=== PATIENT | female | born 1990 | race Caucasian/White ===

== ENCOUNTER 2020-09-26 12:02 | Emergency (ER) | payer MEDICAID, SELFPAY ==
[2020-09-26 12:18] VITALS: BP 169/106; PULSE 104; RESP 18; TEMP 36.8; O2SAT 97; BMI 39.6
--- NOTE | 2020-09-26 12:43 | HMH.EDUTC ---
[facility] [place] Disposition Clinical Impression: URI (upper respiratory infection) Qualifiers: URI type: unspecified URI Qualified Code(s): J06.9 - Acute upper respiratory infection, unspecified Disposition: Home, Self-Care Condition on Discharge: Good Instructions: Sore Throat, Sinusitis, DI for Sinusitis, Preventing the Spread of Coronavirus Discharge Instructions Additional Instructions: *Monitor Temp, Over the counter Motrin or Tylenol as directed/as needed Tylenol every 4 hours and Motrin every 6 hours (as long as your family doctor has told you that you can take it) for fever or pain. and straight to ER if unable to lower temp less than 101.0 after medication given *Warm salt water gargles may help to soothe the throat *Throat Lozenges *Warm fluids like tea with honey may help to soothe the throat *Sleep elevated *Humidifier/Vaporizer *Flonase 2 sprays in each nostril daily but be aware that it may take 2-3 days before you notice improvement Follow up IMMEDIATELY for new or worsening symptoms or no Noticeable improvement over the next 48-72 hours. 911 for difficulty breathing or swallowing You was tested for today for COVID19 your test result should be back later this evening, you may call back later this evening to see if your test results are back and the result You was given a handout with instructions for Self Quarantine and Self isolation for while you wait on test results and what to do if they are positive Prescriptions: Fluticasone Propionate [Flonase 50mcg nasal spray 16gm] 1 spr NS DAILY #1 bottle Transmission Status: Pending to [id number] methylPREDNISolone [Medrol 4mg tab] 4 mg PO DIRECTED #21 tab Transmission Status: Pending to [id number] Azithromycin [Z-Don 250mg Tab] 250 mg PO DIRECTED #6 tab Transmission Status: Pending to [facility] Referrals: PCP,No [Primary Care Provider] - As needed Forms: Work/School Release Time of Disposition: 12:46 Medical Decision Making - Chao Inquiry Pt receiving controlled substance: No Chao was queried for this patient: No Vital Signs: 09/26/20 12:18 Temperature 98.3 F Temperature Source Oral Pulse Rate [Radial] 104 H Respiratory Rate 18 Blood Pressure [Right Arm] 169/106 H Blood Pressure Mean [Right Arm] 127 Blood Pressure Source [Right Arm] Automatic Cuff Blood Pressure Position [Right Arm] Sitting 02 Sat by Pulse Oximetry 97 Oxygen Delivery Method Room Air Orders (Tests/Meds): ORDERS Category Date Time Status Covid-19 Nasal PCR ([facility]) Routine Lab 09/26/20 12:09 Received [facility] [place] HPI - General Stated complaint: covid test Time Seen by Provider: 09/26/20 12:44 Mode of Arrival: Ambulatory Source of Information: Patient Limitations: No Limitations Description of Symptoms (Recalled from Triage Doc. by RN): COVID test, fever, cough, sore throat HEENT Symptoms (Recalled from RN notes): Yes Resp Symptoms (Recalled from RN notes): No Skin Symptoms (Recalled from RN notes): No MS Symptoms (Recalled from RN notes): No Functional Status (Recalled from RN notes): wnl - History of Present Illness Provider Complaint: Patient states that she has been having sinus pain and pressure along with sore throat and cough for over a week States that she thinks she has a sinus infection but she works at [employer] and they wanted her to come in and get checked for COVID - Related Data Previous Rx's Medication Instructions Recorded Azithromycin [Z-Don 250mg Tab] 250 mg PO DIRECTED #6 tab 09/26/20 Fluticasone Propionate [Flonase 1 spr NS DAILY #1 bottle 09/26/20 50mcg nasal spray 16gm] methylPREDNISolone [Medrol 4mg 4 mg PO DIRECTED #21 tab 09/26/20 tab] Allergies Allergy/AdvReac Type Severity Reaction Status Date / Time No Known Allergies Allergy Verified 09/26/20 12:20 - Worker's Comp Is this a Worker's Comp case?: No [facility] History - Hepatitis A Screen Drug use history?: No High risk se
[2020-09-26 12:50] VITALS: BP 169/106; PULSE 104; RESP 18; TEMP 36.8; O2SAT 97
== END 2020-09-26 12:52 | disposition home or self-care (01) ==
PROVIDERS: Emergency Provider Nurse Practitioner
DX: J06.9 Acute upper respiratory infection, unspecified (principal); Z20.828 Contact with and (suspected) exposure to other viral communicable diseases
CPT/HCPCS: 99201; U0003

== ENCOUNTER 2020-12-12 13:55 | Emergency (ER) | payer MEDICAID, SELFPAY ==
[2020-12-12 14:10] VITALS: BP 166/103; PULSE 104; RESP 14; TEMP 36.2; O2SAT 97; BMI 43.0
--- NOTE | 2020-12-12 14:25 | HMH.EDUTC ---
[facility] [place] Clinical Impression: Exposure to COVID-19 virus Disposition: Home, Self-Care Condition on Discharge: Good Instructions: Preventing the Spread of Coronavirus Discharge Instructions Additional Instructions: Drink plenty of fluids. Take tylenol for pain or fever. Return if you begin to have difficulty breathing. Follow up with your regular doctor. GO TO THE ER FOR ANY WORSENING SYMPTOMS Referrals: PCP,No [Primary Care Provider] - Time of Disposition: 14:31 Medical Decision Making - Medical Records Medical records reviewed: No: I reviewed the patient's medical records. - Chao Inquiry Pt receiving controlled substance: No Vital Signs: 12/12/20 14:10 12/12/20 14:35 Temperature 97.1 F L 97.1 F L Temperature Source Oral Pulse Rate 104 H Pulse Rate [Right Brachial] 104 H Respiratory Rate 14 14 Blood Pressure 166/103 H Blood Pressure [Right Arm] 166/103 H Blood Pressure Mean [Right Arm] 124 Blood Pressure Source [Right Arm] Automatic Cuff Blood Pressure Position [Right Arm] Sitting 02 Sat by Pulse Oximetry 97 Oxygen Delivery Method Room Air [facility] [place] HPI - General Stated complaint: covid exposure Time Seen by Provider: 12/12/20 14:25 - History of Present Illness Provider Complaint: She was exposed to covid. She works at [employer] and needs a covid test to be allowed to return. She denies any symptoms so far. She states that the exposure occured apporx 4 days ago. - Related Data Allergies Allergy/AdvReac Type Severity Reaction Status Date / Time No Known Allergies Allergy Verified 09/26/20 12:20 [facility] History - Hepatitis A Screen Attestation statement:: This patient has been screened for Hepatitis A risk factors. I have reviewed the patient's past medical history: Yes - Social History Alcohol Intake: never Occupational Status: employed ROS Obtained: Yes All systems reviewed & no additional complaints - Constitutional Constitutional: Reports system reviewed and no additional complaints, except as docu - Eyes Eyes: Reports system reviewed and no additional complaints, except as docu - ENT Ears, Nose, Mouth, and Throat: Reports system reviewed and no additional complaints, except as docu - Cardiovascular Cardiovascular: Reports system reviewed and no additional complaints, except as docu - Respiratory Respiratory: Reports system reviewed and no additional complaints, except as docu - Gastrointestinal Gastrointestingal: Reports: system reviewed and no additional complaints, except as docu Physical Exam - General General appearance: alert, in no apparent distress - Head Head exam: atraumatic, normocephalic, normal inspection - Eye Eye exam: Present: normal appearance, PERRL, EOMI - ENT ENT exam: Present: normal exam, normal oropharynx, mucous membranes moist, TM's normal bilaterally, normal external ear exam - Neck Neck exam: Present: normal inspection, full ROM, trachea midline. Absent: meningismus, lymphadenopathy - Chest Chest inspection: Present: normal inspection, symmetric chest wall rise. Absent: tenderness - Respiratory Respiratory exam: Present: normal lung sounds bilaterally. Absent: respiratory distress - Cardiovascular Cardiovascular exam: Present: regular rate, normal rhythm. Absent: JVD - Abdominal Exam Abdominal exam: Present: soft, normal bowel sounds. Absent: distention, tenderness, guarding - Extremities Exam Extremities exam: Present: normal inspection, full ROM, normal capillary refill. Absent: calf tenderness - Back Exam Back exam: Present: normal inspection. Absent: tenderness - Neurological Exam Neurological exam: Present: alert, oriented X3 - Psychiatric Psychiatric exam: Present: normal affect, normal mood - Skin Skin exam: Present: warm, dry, intact, normal color - Lymphatic Lymphatic Findings: no adenopathy
[2020-12-12 14:35] VITALS: BP 166/103; PULSE 104; RESP 14; TEMP 36.2; O2SAT 97
== END 2020-12-12 14:38 | disposition home or self-care (01) ==
PROVIDERS: Emergency Provider Nurse Practitioner Family
DX: Z20.822 Contact with and (suspected) exposure to COVID-19 (principal)
CPT/HCPCS: 99202; G0463; U0003

== ENCOUNTER 2021-03-17 07:57 | Emergency (ER) | payer MEDICAID, SELFPAY ==
[2021-03-17] VITALS (9 sets, daily range): BP systolic 134–182; BP diastolic 99–114; PULSE 81–100; RESP 14–19; TEMP 36.6–36.7; O2SAT 92–99; BMI 48.8
--- NOTE | 2021-03-17 07:52 | ECG_ITS ---
APPROVED REPORT Exam: Resting ECG HR:97 bpm ECG Measurements Heart Rate 97 AXES AK 126 P 22 QRSd 84 QRS -66 QT 354 T 46 QTc 449 Conclusion Normal sinus rhythm Left axis deviation Pulmonary disease pattern Abnormal ECG Electronically signed by : Prince Denson, 03/17/2021 17:34:25
--- NOTE | 2021-03-17 08:07 | XR_ITS ---
PROCEDURE: XR CHEST PORTABLE CLINICAL HISTORY: CP Chest pain COMPARISON: No exams were available for comparison FINDINGS: The cardiomediastinal silhouette and pulmonary vascularity are within normal limits. Atelectatic change in the right infrahilar region. The remaining lungs are clear. No acute bony abnormalities. IMPRESSION: Atelectatic change right infrahilar area Dictated by: Stan Myers MD 03/17/2021 08:50 Stan Myers MD in [place] 03/17/2021 08:50
[2021-03-17 08:13] LABS: Basophils # 0.1 K/mm3 (0-0.2); Basophils % 1.4 % (0.1-2.0); Eosinophils # 0.2 K/mm3 (0.0-0.4); Eosinophils % 3.2 % (0.1-12.0); Hematocrit 46.5 % (37.0-47.0); Lymphocytes # 2.4 K/mm3 (0.7-4.5); Lymphocytes % 35.6 % (10-50); Mean Corpuscular HGB Conc 34.3 g/dL (31.8-35.4); Mean Corpuscular Hemoglobin 29.8 pg (27.0-31.2); Mean Corpuscular Volume 86.9 fl (81-99); Mean Platelet Volume 7.8 fl (7.4-10.4); Monocytes # 0.3 K/mm3 (0.1-1.0); Monocytes % 4.4 % (1.7-9.3); Neutrophils # 3.7 K/mm3 (1.8-7.8); Neutrophils % 55.4 % (37.0-80.0); Platelet Count 214 K/mm3 (142-424); Red Blood Count 5.35 M/mm3 (4.20-5.40); Red Cell Distribution Width 12.5 % (11.5-17.5); White Blood Count 6.6 K/mm3 (4.8-10.8)
--- NOTE | 2021-03-17 08:27 | HMH.EDGENADL ---
ED Disposition Clinical Impression: Elevated blood pressure reading Chest pain Qualifiers: Chest pain type: unspecified Qualified Code(s): R07.9 - Chest pain, unspecified Disposition: Home, Self-Care Condition on Discharge: Good Additional Instructions: Please followup as scheduled on Monday for recheck of blood pressure. If elevated at that time, antihypertensives may be indicated. Try tylenol/ibuprofen for pain at home. Always take ibuprofen with food. Return immediately if recurrent chest pain, shortness of breath, headache, lightheadedness, vision changes, weakness, or other new concerning symptoms. Referrals: PCP,No [Primary Care Provider] - - Critical Care Critical Care Time: No Attestation: On 03/17/21, the high probability of a clinically significant, sudden or life threatening deterioration of the following system(s) required my full and direct attention, intervention and personal management. The time I documented below is in addition to time spent performing reported procedures but includes the following listed in this critical care notation. Medical Decision Making - Medical Records Medical records reviewed: Yes: I reviewed the patient's medical records. - Chao Inquiry Pt receiving controlled substance: No Vital Signs: 03/17/21 07:57 03/17/21 08:05 03/17/21 08:15 Temperature 98.1 F Temperature Source Oral Pulse Rate 100 H 92 H Pulse Rate [Right] 91 H Respiratory Rate 18 15 19 Blood Pressure 182/114 H 182/100 H Blood Pressure [Right Arm] 157/100 H Blood Pressure Mean [Right Arm] 119 Blood Pressure Source Automatic Cuff Blood Pressure Position Sitting 02 Sat by Pulse Oximetry 99 96 94 L Oxygen Delivery Method Room Air 03/17/21 08:45 Temperature Temperature Source Pulse Rate 89 Pulse Rate [Right] Respiratory Rate 15 Blood Pressure 168/107 H Blood Pressure [Right Arm] Blood Pressure Mean [Right Arm] Blood Pressure Source Blood Pressure Position 02 Sat by Pulse Oximetry 92 L Oxygen Delivery Method - Lab Data Lab Results 03/17/21 08:00: WBC 6.6, RBC 5.35, Hgb 16.0, Hct 46.5, MCV 86.9, MCH 29.8, MCHC 34.3, RDW 12.5, Plt Count 214, MPV 7.8, Neut % (Auto) 55.4, Lymph % (Auto) 35.6, [place] % (Auto) 4.4, Eos % (Auto) 3.2, Baso % (Auto) 1.4, Neut # (Auto) 3.7, Lymph # (Auto) 2.4, [place] # (Auto) 0.3, Eos # (Auto) 0.2, Baso # (Auto) 0.1 03/17/21 08:00: Troponin I < 0.01 03/17/21 08:00: Sodium 141, Potassium 3.9, Chloride 104, Carbon Dioxide 31 H, Anion Gap 9.9, BUN 11, Creatinine 0.70, Estimated Creat Clear 83, Estimated GFR 97, Est GFR ( Amer) 117, Glucose 141 H, Calcium 9.3 Result diagrams: 03/17/21 08:00 03/17/21 08:00 Orders (Tests/Meds): ORDERS Category Date Time Status Troponin I Q3H Lab 03/17/21 11:15 Ordered Troponin I Q3H Lab 03/17/21 14:15 Ordered - ECG Data Tracing #1 I reviewed this ECG and interpreted as documented below: EKG demonstrates sinus rhythm at a rate of 97 bpm; no acute ST elevation/depression or inverted T waves; QTC 449 ms; QRS 84 ms; CA 126 ms Medical Decision Narrative: Patient presents with chest pain. EKG obtained immediately upon arrival demonstrates no acute cardiac ischemia. Cardiac enzymes will be obtained as ACS is on the differential. Other differential diagnoses do include pneumothorax versus hypertensive emergency versus pneumonia versus anemia versus diffuse esophageal spasm versus costochondritis versus GERD. Patient hemodynamically stable and well-appearing on examination. She will be kept on cardiac monitors throughout entirety of emergency department stay. No murmurs appreciated on auscultation of heart. CXR negative for pneumothorax or other acute cardiopulmonary abnormality. No anemia noted. Electrolytes within normal limits. No signs of end organ dysfunction. Troponin also within normal limits. Patient's heart score is in the low risk category so second set of cardiac enzyme basil
[2021-03-17 08:30] LABS: Troponin I < 0.01 ng/ml (0.00-0.034)
--- NOTE | 2021-03-17 08:31 | PC.NURSE ---
Rad at bedside.
[2021-03-17 08:40] LABS: Anion Gap 9.9 mEq/L (5-15); Blood Urea Nitrogen 11 mg/dl (7-17); Calcium 9.3 mg/dl (8.4-10.2); Carbon Dioxide 31 mmol/L (22.0-30.0); Chloride 104 mmol/L (98-107); Creatinine Clearance Estimated 83 mL/min (50-200); Estimated Glomerular Filt Rate 97 ml/min (>60); GFR (African American) 117 ML/MIN (>60); Glucose 141 mg/dl (74-100); Potassium 3.9 mmoL/L (3.5-5.1); Sodium 141 mmol/L (136-145)
--- NOTE | 2021-03-17 09:14 | PC.NURSE ---
MD at bedside updating patient on results and plan of care.
[2021-03-17 10:47] LABS: Troponin I < 0.01 ng/ml (0.00-0.034)
== END 2021-03-17 11:04 | disposition home or self-care (01) ==
PROVIDERS: Emergency Provider Emergency Medicine
DX: R03.0 Elevated blood-pressure reading, without diagnosis of hypertension (principal); R07.9 Chest pain, unspecified; E66.9 Obesity, unspecified; Z68.42 Body mass index [BMI] 45.0-49.9, adult
CPT/HCPCS: 71045; 80048; 84484; 85025; 93005; 99282

== ENCOUNTER → 2021-09-29 11:50 | Outpatient (CLI) | payer MEDICAID, SELFPAY | PROVIDERS: PCP Family Medicine; Visit Provider Nurse Practitioner | DX: Z20.822 Contact with and (suspected) exposure to COVID-19 (principal); U07.1 COVID-19 | CPT/HCPCS: C9803; U0003; U0005 ==

== ENCOUNTER 2021-11-06 08:59 | Emergency (ER) | payer MEDICAID, SELFPAY ==
[2021-11-06 09:00] VITALS: BP 144/87; PULSE 81; RESP 18; TEMP 37; O2SAT 98; BMI 48.4
--- NOTE | 2021-11-06 09:45 | HMH.EDUTC ---
[facility] [place] Clinical Impression: COVID-19 virus test result unknown Disposition: Home, Self-Care Condition on Discharge: Good Instructions: Preventing the Spread of Coronavirus Discharge Instructions Additional Instructions: covid swab was sent to lab, call later today for results. self isolate until test results are known to be negative Referrals: Samy Temple MD [Primary Care Provider] - Time of Disposition: 09:47 Medical Decision Making - Chao Inquiry Pt receiving controlled substance: No Vital Signs: 11/06/21 09:00 Temperature 98.6 F Temperature Source Oral Pulse Rate [Left Brachial] 81 Respiratory Rate 18 Blood Pressure [Left Arm] 144/87 H Blood Pressure Mean [Left Arm] 106 Blood Pressure Source [Left Arm] Automatic Cuff Blood Pressure Position [Left Arm] Sitting 02 Sat by Pulse Oximetry 98 Oxygen Delivery Method Room Air Orders (Tests/Meds): ORDERS Category Date Time Status Covid-19 Nasal PCR ([facility]) Routine Lab 11/06/21 09:27 Ordered [facility] [place] - General Chief complaint: [facility] Stated complaint: vomiting, diarrhea Time Seen by Provider: 11/06/21 09:45 Mode of Arrival: Ambulatory Source of Information: Patient Limitations: No Limitations Description of Symptoms (Recalled from Triage Doc. by RN): PATIENT NEEDING COVID TEST. DENIES SYMPTOMS HEENT Symptoms (Recalled from RN notes): No Resp Symptoms (Recalled from RN notes): No Skin Symptoms (Recalled from RN notes): No MS Symptoms (Recalled from RN notes): No Functional Status (Recalled from RN notes): WNL - History of Present Illness Provider Complaint: 31 yr old female presents for covid test, denies symptoms - Related Data Previous Rx's Medication Instructions Recorded lisinopril 20 1 tab PO DAILY #90 tab 03/19/21 mg-hydrochlorothiazide 12.5 mg tablet benzonatate 200 mg capsule 200 mg PO TID PRN #30 cap 10/01/21 Allergies Allergy/AdvReac Type Severity Reaction Status Date / Time No Known Allergies Allergy Verified 03/19/21 14:25 - Worker's Comp Is this a Worker's Comp case?: No [facility] History - Hepatitis A Screen Drug use history?: No High risk sexual behaviors?: No History of sexually transmitted infection?: No Currently employed?: No Childcare worker?: No Do you have indoor plumbing?: Yes Do you have electricity?: Yes Attestation statement:: This patient has been screened for Hepatitis A risk factors. I have reviewed the patient's past medical history: Yes Other Surgeries: Yes: Tubal Ligation Amputation: No Fractures: No Comment: Ablasion - Social History Smoking Status: Never smoker Alcohol Intake: never Alcohol Intake Frequency:: other Substance Use Type: denies use Occupational Status: other Family Hx:: No significant family history ROS Obtained: Yes Systems reviewed as appropriate & no additional complaints - Constitutional Constitutional: Reports system reviewed and no additional complaints, except as docu, Denies fatigue - Eyes Eyes: Reports system reviewed and no additional complaints, except as docu, Denies blind spots - ENT Ears, Nose, Mouth, and Throat: Reports system reviewed and no additional complaints, except as docu, Reports otalgia - Cardiovascular Cardiovascular: Reports system reviewed and no additional complaints, except as docu, Denies leg pain with activity - Respiratory Respiratory: Reports system reviewed and no additional complaints, except as docu, Denies shortness of breath - Gastrointestinal Gastrointestingal: Reports: system reviewed and no additional complaints, except as docu. Denies: change in bowel habits - Genitourinary Female Genitourinary: Reports system reviewed and no additional complaints, except as docu - Musculoskeletal Musculoskeletal: Reports system reviewed and no additional complaints, except as docu, Denies joint pain - Integumentary/Breasts Skin/Breast: Reports system reviewed and no additional complaint
[2021-11-06 09:57] VITALS: BP 144/87; PULSE 81; RESP 18; TEMP 37; O2SAT 98
== END 2021-11-06 10:25 | disposition home or self-care (01) ==
PROVIDERS: Emergency Provider Nurse Practitioner Family; PCP Family Medicine
DX: R11.10 Vomiting, unspecified (principal); R19.7 Diarrhea, unspecified; Z20.822 Contact with and (suspected) exposure to COVID-19
CPT/HCPCS: 99202; C9803; G0463; U0003; U0005

== ENCOUNTER 2021-11-17 07:00 | Emergency (ER) | payer MEDICAID, SELFPAY ==
--- NOTE | 2021-11-17 06:58 | ECG_ITS ---
APPROVED REPORT Exam: Resting ECG HR:108 bpm ECG Measurements Heart Rate 108 AXES ND 138 P 53 QRSd 84 QRS 256 QT 338 T 39 QTc 452 Conclusion Sinus tachycardia Right superior axis deviation Abnormal ECG Electronically signed by : Prince Denson MD 11/17/2021 20:34:41
[2021-11-17 07:01] VITALS: BP 157/98; PULSE 101; RESP 20; TEMP 36.9; O2SAT 98; BMI 48.8
--- NOTE | 2021-11-17 07:14 | XR_ITS ---
PROCEDURE INFORMATION: Exam: XR Chest Exam date and time: 11/17/2021 7:14 AM Age: 31 years old Clinical indication: Cough; Additional info: Cough, chest pain TECHNIQUE: Imaging protocol: XR of the chest. Views: 2 views. COMPARISON: CR XR CHEST PORTABLE 03/17/2021 8:28 AM FINDINGS: Lungs: Hypoinflation, without acute airspace disease. Pleural spaces: No pleural effusion. Heart/Mediastinum: Normal configuration of the heart. Bones/joints: Unremarkable. IMPRESSION: No acute airspace disease.
[2021-11-17 07:17] LABS: Coronavirus 19, PCR Not Detected (NotDetected); Influenza A, PCR Not Detected (NotDetected); Influenza B, PCR Not Detected (NotDetected)
[2021-11-17 07:21] LABS: Chloride 104 mmol/L (98-107)
[2021-11-17 07:22] LABS: Basophils # 0.1 K/mm3 (0-0.2); Eosinophils # 0.2 K/mm3 (0.0-0.4); Eosinophils % 3.1 % (0.1-12.0); Hematocrit 46.3 % (37.0-47.0); Hemoglobin 16.1 g/dL (12.2-16.2); Lymphocytes % 28.4 % (10-50); Mean Corpuscular HGB Conc 34.9 g/dL (31.8-35.4); Mean Corpuscular Hemoglobin 31.1 pg (27.0-31.2); Mean Corpuscular Volume 89.1 fl (81-99); Mean Platelet Volume 7.4 fl (7.4-10.4); Monocytes # 0.3 K/mm3 (0.1-1.0); Monocytes % 4.8 % (1.7-9.3); Neutrophils # 4.3 K/mm3 (1.8-7.8); Neutrophils % 62.8 % (37.0-80.0); Platelet Count 226 K/mm3 (142-424); Potassium 4.1 mmoL/L (3.5-5.1); Red Cell Distribution Width 12.1 % (11.5-17.5); Sodium 141 mmol/L (136-145); White Blood Count 6.9 K/mm3 (4.8-10.8)
[2021-11-17 07:24] LABS: Alanine Aminotransferase 26 U/L (12-78); Aspartate Amino Transferase 31 U/L (14-36); Blood Urea Nitrogen 12 mg/dl (7-17); Creatinine Clearance Estimated 83 mL/min (50-200); Estimated Glomerular Filt Rate 97 ml/min (>60); GFR (African American) 117 ML/MIN (>60)
[2021-11-17 07:25] LABS: Albumin Level 4.3 g/dl (3.5-5.0); Albumin/Globulin Ratio 1.5 (1.1-1.8); Alkaline Phosphatase 41 U/L (38-126); Anion Gap 9.1 mEq/L (5-15); Bilirubin,Total 0.4 mg/dl (0.2-1.3); Calcium 9.1 mg/dl (8.4-10.2); Carbon Dioxide 32 mmol/L (22.0-30.0); Globulin 2.8 g/dL (1.3-3.2); Glucose 136 mg/dl (74-100); Total Protein,Serum 7.1 g/dl (6.3-8.2)
--- NOTE | 2021-11-17 07:36 | PC.NURSE ---
notified rad of xray order
[2021-11-17 07:38] LABS: Troponin I < 0.01 ng/ml (0.00-0.034)
[2021-11-17 07:45] LABS: Urine Pregnancy, HCG Qual. Negative (Negative)
--- NOTE | 2021-11-17 08:24 | HMH.EDGENADL ---
ED Disposition Clinical Impression: URI (upper respiratory infection), Chest pain Disposition: Home, Self-Care Condition on Discharge: Fair Instructions: DI for Atypical Chest Pain Referrals: Samy Temple MD [Primary Care Provider] - - Critical Care Critical Care Time: No Attestation: On 11/17/21, the high probability of a clinically significant, sudden or life threatening deterioration of the following system(s) required my full and direct attention, intervention and personal management. The time I documented below is in addition to time spent performing reported procedures but includes the following listed in this critical care notation. Medical Decision Making - Medical Records Medical records reviewed: Yes: I reviewed the patient's medical records. - Chao Inquiry Pt receiving controlled substance: No Chao was queried for this patient: No Vital Signs: 11/17/21 07:01 Temperature 98.4 F Temperature Source Oral Pulse Rate [Apical] 101 H Respiratory Rate 20 Blood Pressure [Right Arm] 157/98 H Blood Pressure Mean [Right Arm] 117 Blood Pressure Source [Right Arm] Automatic Cuff Blood Pressure Position [Right Arm] Sitting 02 Sat by Pulse Oximetry 98 Oxygen Delivery Method Room Air - Lab Data Lab results reviewed: Yes: I reviewed the patient's lab results. Lab Results 11/17/21 07:02: Troponin I < 0.01, C-Reactive Protein 4.0 11/17/21 07:02: WBC 6.9, RBC 5.20, Hgb 16.1, Hct 46.3, MCV 89.1, MCH 31.1, MCHC 34.9, RDW 12.1, Plt Count 226, MPV 7.4, Neut % (Auto) 62.8, Lymph % (Auto) 28.4, [place] % (Auto) 4.8, Eos % (Auto) 3.1, Baso % (Auto) 1.0, Neut # (Auto) 4.3, Lymph # (Auto) 2.0, [place] # (Auto) 0.3, Eos # (Auto) 0.2, Baso # (Auto) 0.1, ESR 4 11/17/21 07:02: Sodium 141, Potassium 4.1, Chloride 104, Carbon Dioxide 32 H, Anion Gap 9.1, BUN 12, Creatinine 0.70, Estimated Creat Clear 83, Estimated GFR 97, Est GFR ( Amer) 117, Glucose 136 H, Calcium 9.1, Total Bilirubin 0.4, AST 31, ALT 26, Alkaline Phosphatase 41, Total Protein 7.1, Albumin 4.3, Globulin 2.8, Albumin/Globulin Ratio 1.5, Procalcitonin 0.067 11/17/21 07:03: SARS-CoV-2 (PCR) Not detected, Influenza A Untype (PCR) Not detected, Influenza Type B (PCR) Not detected 11/17/21 07:22: Urine HCG, Qual Negative 11/17/21 08:15: D-Dimer 0.37 Result diagrams: 11/17/21 07:02 11/17/21 07:02 Orders (Tests/Meds): ED MEDICATIONS Generic Name Dose Route Start Last Admin Trade Name Freq PRN Reason Stop Dose Admin Lactated Ringer's 1,000 mls @ 999 mls/hr 11/17/21 08:30 11/17/21 09:14 Lactated Ringer's 1000 Ml Bag IV 11/17/21 09:30 999 mls/hr .Q1H1M ARSENIO Administration Discontinued Medications Generic Name Dose Route Start Last Admin Trade Name Freq PRN Reason Stop Dose Admin Prochlorperazine Edisylate 5 mg 11/17/21 08:19 11/17/21 09:13 Prochlorperazine 10mg/2ml Vial IV 11/17/21 08:20 5 mg ONCE ONE Administration ORDERS Category Date Time Status Chest XR 2 view (NOT portable) [XR chest 2V] Stat Exams 11/17/21 07:14 Taken Troponin I Q3H Lab 11/17/21 10:15 Ordered Troponin I Q3H Lab 11/17/21 13:15 Ordered Medical Decision Narrative: Patient is a 31-year-old female with past medical history of hypertension presenting to the ED with chest pain cough, congestion. Patient is awake, alert, not in acute distress. Patient is imminently stable, afebrile. Patient's physical exam is unremarkable. Differential includes but is not limited to upper respiratory infection, bronchitis, viral pneumonia, bacterial pneumonia, low concern for a pulmonary embolism, ACS. Given this a CBC, CMP, EKG, troponin, chest x-ray, D-dimer is performed. Patient is given IV fluids, Compazine. His lab work is unremarkable, troponins negative, x-ray without any consolidation, pneumothorax, pneumonia, D-dimer is negative. At this point patient feels better after the Compazine patient is stable for discharge. Patient is given strict return preca
[2021-11-17 08:25] LABS: Erythrocyte Sedimentation Rate 4 mm/hr (0-20)
[2021-11-17 08:51] LABS: Procalcitonin 0.067 ng/mL (0.0-2.0)
[2021-11-17 09:54] VITALS: BP 166/108; PULSE 87; RESP 16; O2SAT 95
[2021-11-17 09:55] VITALS: BP 166/108; PULSE 90; RESP 18; TEMP 36.9; O2SAT 96
== END 2021-11-17 09:55 | disposition home or self-care (01) ==
PROVIDERS: Emergency Medicine; Emergency Provider Emergency Medicine; PCP Family Medicine
DX: J06.9 Acute upper respiratory infection, unspecified (principal); I10 Essential (primary) hypertension; Z20.822 Contact with and (suspected) exposure to COVID-19
CPT/HCPCS: 71046; 80053; 81025; 84145; 84484; 85025; 85378; 85651; 86140; 93005; 96374; 99283; C9803; U0003; U0005

== ENCOUNTER → 2022-01-19 10:23 | Outpatient (CLI) | payer MEDICAID, SELFPAY | PROVIDERS: PCP Family Medicine; Visit Provider Nurse Practitioner | DX: Z20.822 Contact with and (suspected) exposure to COVID-19 (principal) | CPT/HCPCS: C9803; U0003; U0005 ==

== ENCOUNTER 2022-04-11 19:22 | Emergency (ER) | payer MEDICAID, SELFPAY ==
[2022-04-11 20:14] VITALS: PULSE 102; RESP 19; TEMP 36.9; O2SAT 97; BMI 50.8
--- NOTE | 2022-04-11 21:04 | HMH.EDUTC ---
[facility] [place] Clinical Impression: Allergic reaction Qualifiers: Encounter type: initial encounter Qualified Code(s): T78.40XA - Allergy, unspecified, initial encounter Sting from hornet, wasp, or bee Qualifiers: Encounter type: initial encounter Injury intent: accidental or unintentional Qualified Code(s): T63.451A - Toxic effect of venom of hornets, accidental (unintentional), initial encounter; T63.441A - Toxic effect of venom of bees, accidental (unintentional), initial encounter; T63.461A - Toxic effect of venom of wasps, accidental (unintentional), initial encounter Disposition: Home, Self-Care Condition on Discharge: Good Instructions: Insect Bites and Stings, DI for Insect Bites and Stings, DI for General Allergic Reactions Additional Instructions: Drink plenty of fluids. Take tylenol or ibuprofen for pain or fever. Take the medications as directed. Follow up with your regular doctor. GO TO THE ER FOR ANY WORSENING SYMPTOMS Don't start the oral steroids until tomorrow, since you had the shot here today. Take the benedryl (diphenhydramine) regularly every 6 hours for the next few days. Don't drive or operate heavy machinery after taking the benedryl. Prescriptions: methylPREDNISolone [Medrol] 4 mg PO DIRECTED 6 Days #21 packet Transmission Status: Pending to [id number] Referrals: Samy Temple MD [Primary Care Provider] - Time of Disposition: 21:12 Medical Decision Making - Medical Records Medical records reviewed: No: I reviewed the patient's medical records. - Chao Inquiry Pt receiving controlled substance: No Vital Signs: 04/11/22 20:14 Temperature 98.4 F Temperature Source Oral Pulse Rate [Left Radial] 102 H Respiratory Rate 19 02 Sat by Pulse Oximetry 97 Orders (Tests/Meds): ED MEDICATIONS Discontinued Medications Generic Name Dose Route Start Last Admin Trade Name Freq PRN Reason Stop Dose Admin Diphenhydramine HCl 25 mg 04/11/22 20:55 04/11/22 21:01 Diphenhydramine 50mg/Ml Vial IM 04/11/22 20:56 25 mg ONCE ONE Administration Methylprednisolone Sodium Succinate 125 mg 04/11/22 20:53 04/11/22 21:01 Methylprednisolone Sod Succ 125mg Vial IM 04/11/22 20:54 125 mg ONCE ONE [place] [facility] [place] - General Stated complaint: facial swelling ,poss allerigic reaction Time Seen by Provider: 04/11/22 21:04 Mode of Arrival: Ambulatory Source of Information: Patient Limitations: No Limitations Description of Symptoms (Recalled from Triage Doc. by RN): reaction to something. 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 She began to have swelling at the site, then she had swelling of her face and around her eyes. She denies any lip swelling or swelling in her mouth or throat. - Related Data Previous Rx's Medication Instructions Recorded lisinopril 20 1 tab PO DAILY #90 tab 03/19/21 mg-hydrochlorothiazide 12.5 mg tablet benzonatate 200 mg capsule 200 mg PO TID PRN #30 cap 10/01/21 methylPREDNISolone [Medrol] 4 mg PO DIRECTED 6 Days #21 04/11/22 packet Allergies Allergy/AdvReac Type Severity Reaction Status Date / Time No Known Allergies Allergy Verified 03/19/21 14:25 - Worker's Comp Is this a Worker's Comp case?: No [facility] History - Hepatitis A Screen Attestation statement:: This patient has been screened for Hepatitis A risk factors. I have reviewed the patient's past medical history: Yes Medical History: Reports:: Hypertension Other Surgeries: Yes: Tubal Ligation Amputation: No Fractures: No Comment: Ablasion - Social History Smoking Status:
[2022-04-11 21:18] VITALS: BP 140/90; PULSE 85; RESP 19; TEMP 36.9
== END 2022-04-11 21:20 | disposition home or self-care (01) ==
PROVIDERS: Emergency Provider Nurse Practitioner Family; PCP Family Medicine
DX: T63.461A Toxic effect of venom of wasps, accidental (unintentional), initial encounter (principal); T63.451A Toxic effect of venom of hornets, accidental (unintentional), initial encounter; T63.441A Toxic effect of venom of bees, accidental (unintentional), initial encounter; T78.40XA Allergy, unspecified, initial encounter; R22.0 Localized swelling, mass and lump, head; Z79.52 Long term (current) use of systemic steroids; Z79.899 Other long term (current) drug therapy
CPT/HCPCS: 96372; 99213; G0463

== ENCOUNTER 2022-11-10 17:14 | Emergency (ER) | payer MEDICAID, SELFPAY ==
--- NOTE | 2022-11-10 18:14 | EXP.UTC ---
Discharge Plan Disposition Patient Disposition: Home, Self-Care Condition: Good Prescriptions Prescriptions: New benzonatate [benzonatate] 100 mg capsule 100 mg PO TIDP PRN (Reason: Cough) Qty: 30 0RF azithromycin [Zithromax] 250 mg tablet 250 mg PO UD DOSE PK Qty: 6 0RF Rx Instructions: Take two (2) tablets today, then one (1) tablet days #2 thru #5 methylprednisolone 4 mg Tablets,Dose Pack 4 mg PO DIRECTED Qty: 21 0RF No Action benzonatate 200 mg capsule 200 mg PO TID PRN (Reason: cough) Qty: 30 0RF lisinopril-hydrochlorothiazide 20-12.5 mg tablet See Rx Instructions .ROUTE .COMPLEX Qty: 90 0RF Dose Instruction: Take 1 tablet by mouth once daily Rx Instructions: Take 1 tablet by mouth once daily methylprednisolone 4 MG tablets,dose pack 4 mg PO DIRECTED 6 Days Qty: 21 0RF Referrals Follow up/Referrals: Samy Temple MD [Primary Care Provider] - See instructions Activity Restrictions/Add. Instructions Additional Instructions/Restrictions: Drink plenty of fluids. Take tylenol or ibuprofen for pain or fever. Take the medications as directed. Follow up with your regular doctor. GO TO THE ER FOR ANY WORSENING SYMPTOMS Clinical Impressions Clinical Impression: Acute bronchitis, Sinusitis Instructions Patient Instructions: DI for Sinusitis, DI for Acute Bronchitis [place]charge ED Provider: Marko [place] [facility] [place] General Stated complaint: COUGH, SOA, CONGESTION Time Seen by Provider: 11/10/22 18:14 History of Present Illness Provider Complaint: she c/o chest and sinus congestion, malaise and productive cough for the past 3 days. Related Data Previous Rx's Medication Instructions Recorded benzonatate 200 mg capsule 200 mg PO TID PRN cough #30 caps 10/01/21 methylprednisolone 4 mg tablets in 4 mg PO DIRECTED 6 days #21 04/11/22 a dose pack packets lisinopril 20 See Rx Instructions .Route 04/12/22 mg-hydrochlorothiazide 12.5 mg .COMPLEX #90 tabs tablet azithromycin 250 mg tablet 250 mg PO UD DOSE PK #6 tabs 11/10/22 (Zithromax) benzonatate 100 mg capsule 100 mg PO TIDP PRN Cough #30 caps 12/15/22 methylprednisolone 4 mg tablets in 4 mg PO DIRECTED #21 tabs 11/10/22 a dose pack Allergies Allergy/AdvReac Type Severity Reaction Status Date / Time No Known Allergies Allergy Verified 03/19/21 14:25 [facility] Disclaimer: The information contained in this section may have been updated after the patient was seen, as this information can be updated by other users. Medical History Hypertension Surgical History History of tubal ligation Social History Smoking Status: Never smoker alcohol intake: never substance use type: denies use current occupational status: other Travel in the last 8 weeks: None ROS Obtained: Yes All systems reviewed & no additional complaints except as documented Constitutional Constitutional: Reports chills and Reports fever(s) Eyes Eyes: Denies eye discharge ENT Ears, Nose, Mouth, and Throat: Reports as per HPI Cardiovascular Cardiovascular: Denies chest pain Respiratory Respiratory: Denies chest congestion and Reports cough Gastrointestinal Gastrointestingal: Reports nausea; Denies abdominal pain, constipation, cramping, diarrhea or vomiting Musculoskeletal Musculoskeletal: Denies arthralgias Integumentary/Breasts Skin/Breast: Denies rash Neurologic Neurologic: Denies paresthesias Physical Exam General General appearance: alert and in no apparent distress Head Head exam: atraumatic, normocephalic and normal inspection Eye Eye exam: Present normal appearance, PERRL and EOMI ENT ENT exam: Present normal exam, normal oropharynx, mucous membranes moist, TM's normal bilaterally and normal external ear exam Neck Neck ex
[2022-11-10 18:15] VITALS: BP 177/117; PULSE 111; RESP 20; TEMP 37.1; O2SAT 96; BMI 51.0
[2022-11-10 18:38] VITALS: BP 177/117; PULSE 111; RESP 20; TEMP 37.1; O2SAT 96
== END 2022-11-10 19:17 | disposition home or self-care (01) ==
PROVIDERS: Emergency Provider Nurse Practitioner Family; PCP Family Medicine
DX: J20.9 Acute bronchitis, unspecified (principal); J32.9 Chronic sinusitis, unspecified
CPT/HCPCS: 99212; G0463

== ENCOUNTER 2022-11-22 12:04 | Emergency (ER) | payer MEDICAID, SELFPAY ==
[2022-11-22 13:15] VITALS: BP 137/87; PULSE 125; RESP 16; TEMP 36.9; O2SAT 96; BMI 51.0
--- NOTE | 2022-11-22 13:25 | EXP.UTC ---
Discharge Plan Disposition Patient Disposition: Home, Self-Care Condition: Good Prescriptions Prescriptions: New benzonatate [benzonatate] 100 mg capsule 100 mg PO TIDP PRN (Reason: Cough) Qty: 30 0RF methylprednisolone 4 mg Tablets,Dose Pack 4 mg PO DIRECTED Qty: 21 0RF cefdinir 300 mg capsule 300 mg PO BID Qty: 20 0RF No Action benzonatate 200 mg capsule 200 mg PO TID PRN (Reason: cough) Qty: 30 0RF lisinopril-hydrochlorothiazide 20-12.5 mg tablet See Rx Instructions .ROUTE .COMPLEX Qty: 90 0RF Dose Instruction: Take 1 tablet by mouth once daily Rx Instructions: Take 1 tablet by mouth once daily methylprednisolone 4 MG tablets,dose pack 4 mg PO DIRECTED 6 Days Qty: 21 0RF benzonatate [benzonatate] 100 mg capsule 100 mg PO TIDP PRN (Reason: Cough) Qty: 30 0RF azithromycin [Zithromax] 250 mg tablet 250 mg PO UD DOSE PK Qty: 6 0RF Rx Instructions: Take two (2) tablets today, then one (1) tablet days #2 thru #5 methylprednisolone 4 mg Tablets,Dose Pack 4 mg PO DIRECTED Qty: 21 0RF Referrals Follow up/Referrals: Samy Temple MD [Primary Care Provider] - See instructions Activity Restrictions/Add. Instructions Additional Instructions/Restrictions: Drink plenty of fluids. Take tylenol or ibuprofen for pain or fever. Take the medications as directed. Follow up with your regular doctor. GO TO THE ER FOR ANY WORSENING SYMPTOMS Clinical Impressions Clinical Impression: Acute bronchitis Stand Alone Forms Stand Alone Forms: Work/School Release Instructions Patient Instructions: Acute Bronchitis, DI for Acute Bronchitis Discharge ED Provider: Marko Swan [facility] [place] H[place] General Stated complaint: Cough, sore throat, vomitting Mode of Arrival: Ambulatory Source of Information: Patient Limitations: No Limitations Time Seen by Provider: 11/22/22 13:25 Description of Symptoms (Recalled from Triage Doc. by RN): pt comes in with c/o cough ongoing for 2 weeks. nausea and vomitting began 3 days ago HEENT Symptoms (Recalled from RN notes): No Resp Symptoms (Recalled from RN notes): Yes Skin Symptoms (Recalled from RN notes): No MS Symptoms (Recalled from RN notes): No Functional Status (Recalled from RN notes): n/a History of Present Illness Provider Complaint: She states that for the past several weeks she has had a cough and chest congestion. She took azithromycin when this first started. She states that she got better with that, but since finishing it she has got worse again. Related Data Previous Rx's Medication Instructions Recorded benzonatate 200 mg capsule 200 mg PO TID PRN cough #30 caps 10/01/21 methylprednisolone 4 mg tablets in 4 mg PO DIRECTED 6 days #21 04/11/22 a dose pack packets lisinopril 20 See Rx Instructions .Route 04/12/22 mg-hydrochlorothiazide 12.5 mg .COMPLEX #90 tabs tablet azithromycin 250 mg tablet 250 mg PO UD DOSE PK #6 tabs 11/10/22 (Zithromax) benzonatate 100 mg capsule 100 mg PO TIDP PRN Cough #30 caps 11/10/22 methylprednisolone 4 mg tablets in 4 mg PO DIRECTED #21 tabs 11/10/22 a dose pack benzonatate 100 mg capsule 100 mg PO TIDP PRN Cough #30 caps 11/22/22 cefdinir 300 mg capsule 300 mg PO BID #20 caps 11/22/22 methylprednisolone 4 mg tablets in 4 mg PO DIRECTED #21 tabs 11/22/22 a dose pack Allergies Allergy/AdvReac Type Severity Reaction Status Date / Time No Known Allergies Allergy Verified 11/22/22 13:17 Worker's Comp Is this a Worker's Comp case?: No [facility] Disclaimer: The information contained in this section may have been updated after the patient was seen, as this information can be updated by other users. Medical History Hypertension Surgical History History of tubal ligation Social History S
[2022-11-22 13:30] LABS: UTC Influenza A Antigen Negative (Negative); UTC Influenza B Antigen Negative (Negative)
[2022-11-22 14:14] VITALS: BP 137/87; PULSE 125; RESP 16; TEMP 36.9
[2022-11-22 14:20] LABS: Adenovirus,PCR Not Detected (NotDetected); Bordetella Pertussis Not Detected (NotDetected); Chlamydophila Pneumoniae, PCR Not Detected (NotDetected); Coronavirus 19, PCR Not Detected (NotDetected); Coronavirus 229E Not Detected (NotDetected); Coronavirus NL63 Not Detected (NotDetected); Coronavirus OC43 Not Detected (NotDetected); Coronovirus HKU1,PCR Not Detected (NotDetected); Human Metapneumovirus Not Detected (NotDetected); Influenza A, PCR Not Detected (NotDetected); Influenza AH1, PCR Not Detected (NotDetected); Influenza AH3,PCR Not Detected (NotDetected); Influenza B, PCR Not Detected (NotDetected); Mycoplasma Pneumoniae, PCR Not Detected (NotDetected); Parainfluenza 1, PCR Not Detected (NotDetected); Parainfluenza 2, PCR Not Detected (NotDetected); Parainfluenza 3, PCR Not Detected (NotDetected); Parainfluenza 4, PCR Not Detected (NotDetected); Respiratory Syncytial Virus Not Detected (NotDetected); Rhinovirus/Enterovirus Not Detected (NotDetected)
[2022-11-23 08:37] LABS: Influenza AH1, 2009 Detected (NotDetected)
== END 2022-11-22 14:17 | disposition home or self-care (01) ==
PROVIDERS: Emergency Provider Nurse Practitioner Family; PCP Family Medicine
DX: J10.1 Influenza due to other identified influenza virus with other respiratory manifestations (principal); J40 Bronchitis, not specified as acute or chronic
CPT/HCPCS: 87581; 87632; 87798; 87804; 99212; C9803; G0463; U0003; U0005

== ENCOUNTER 2023-02-11 08:19 | Emergency (ER) | payer MEDICAID, SELFPAY ==
[2023-02-11 08:25] VITALS: BP 139/103; PULSE 113; RESP 20; TEMP 36.4; O2SAT 96; BMI 50.8
--- NOTE | 2023-02-11 08:49 | EXP.UTC ---
Discharge Plan Disposition Patient Disposition: Home, Self-Care Condition: Good Prescriptions Prescriptions: New cephalexin [cephalexin] 500 mg tablet 500 mg PO BID 7 Days Qty: 14 0RF triamcinolone acetonide 0.025 % cream 1 applic topical BID Qty: 80 0RF Rx Instructions: to rash No Action lisinopril-hydrochlorothiazide 20-12.5 mg Tablet 1 tab PO DAILY Referrals Follow up/Referrals: Samy Temple MD [Primary Care Provider] - See instructions Activity Restrictions/Add. Instructions Additional Instructions/Restrictions: continue steroids do not scratch return if symptoms worsen or do not improve follow up with pcp Clinical Impressions Clinical Impression: Allergic reaction, Impetigo Instructions Patient Instructions: DI for Impetigo, DI for General Allergic Reactions Discharge ED Provider: Cecilio ([facility])Nasim [facility] [place] H[place] General Stated complaint: Rash LT side face Mode of Arrival: Ambulatory Source of Information: Patient Limitations: No Limitations Time Seen by Provider: 02/11/23 08:49 Description of Symptoms (Recalled from Triage Doc. by RN): PATIENT C/O RASH TO FACE X 1 WEEK HEENT Symptoms (Recalled from RN notes): No Resp Symptoms (Recalled from RN notes): No Skin Symptoms (Recalled from RN notes): Yes MS Symptoms (Recalled from RN notes): No Functional Status (Recalled from RN notes): WNL History of Present Illness Provider Complaint: 33 yr old female presents for rash to chin,forehead, upper lip, abd, al breast that itch. pt states she was seen earlier in the week and placed on steroids and was given a shot with no improvement. Related Data Home Medications Medication Instructions Recorded Confirmed lisinopril 20 1 tab PO DAILY Hypertension 02/11/23 02/11/23 mg-hydrochlorothiazide 12.5 mg tablet Previous Rx's Medication Instructions Recorded cephalexin 500 mg tablet 500 mg PO BID 7 days #14 tabs 02/11/23 triamcinolone acetonide 0.025 % 1 applic topical BID #80 grams 02/11/23 topical cream Allergies Allergy/AdvReac Type Severity Reaction Status Date / Time No Known Allergies Allergy Verified 02/09/23 09:33 Worker's Comp Is this a Worker's Comp case?: No [facility] Disclaimer: The information contained in this section may have been updated after the patient was seen, as this information can be updated by other users. Medical History , TEXTILE MACHINE OPERATOR) Hypertension Surgical History , TEXTILE MACHINE OPERATOR) History of tubal ligation Social History , TEXTILE MACHINE OPERATOR) Smoking Status: Never smoker alcohol intake: never substance use type: denies use current occupational status: other Travel in the last 8 weeks: None ROS Obtained: Yes All systems reviewed & no additional complaints except as documented Constitutional Constitutional: Reports system reviewed and no additional complaints, except as documented and Reports as per HPI Eyes Eyes: Reports system reviewed and no additional complaints, except as documented ENT Ears, Nose, Mouth, and Throat: Reports system reviewed and no additional complaints, except as documented Cardiovascular Cardiovascular: Reports system reviewed and no additional complaints, except as documented Respiratory Respiratory: Reports system reviewed and no additional complaints, except as documented Gastrointestinal Gastrointestingal: Reports system reviewed and no additional complaints, except as documented Genitourinary Female Genitourinary: Reports system reviewed and no additional complaints, except as documented Musculoskeletal Musculoskeletal: Reports system reviewed and no additional complaints, except as documented Integumentary/Breasts Skin/Breast: Reports system reviewed and no additional complaints, except as documented, Reports as per HPI, Reports pruritus and Reports rash Ne
[2023-02-11 09:14] VITALS: BP 139/103; PULSE 113; RESP 20; TEMP 36.4; O2SAT 96
== END 2023-02-11 09:25 | disposition home or self-care (01) ==
PROVIDERS: Emergency Provider Nurse Practitioner Family; PCP Family Medicine
DX: L01.00 Impetigo, unspecified (principal); T78.40XA Allergy, unspecified, initial encounter
CPT/HCPCS: 99212; 99214; G0463

== ENCOUNTER 2023-07-16 10:13 | Emergency (ER) | payer MEDICAID, SELFPAY ==
[2023-07-16 10:25] VITALS: BP 148/93; PULSE 98; RESP 18; TEMP 36.6; O2SAT 100; BMI 42.9
--- NOTE | 2023-07-16 10:39 | EXP.UTC ---
Discharge Plan Disposition Patient Disposition: Home, Self-Care Condition: Good Prescriptions Prescriptions: New cefdinir 300 mg capsule 300 mg PO BID Qty: 20 0RF phenazopyridine [Pyridium] 200 mg tablet 200 mg PO Q8H 2 Days Qty: 6 0RF No Action lisinopril-hydrochlorothiazide 20-12.5 mg Tablet 1 tab PO DAILY Referrals Follow up/Referrals: Samy Temple MD [Primary Care Provider] - See instructions Activity Restrictions/Add. Instructions Additional Instructions/Restrictions: Make sure to follow up with your Family Doctor as discussed due to glucose in your urine *Increase fluids. Water not Soda or Tea *Start antibiotic immediately and be sure to take as ordered for the FULL length of time although you should start to see improvement over the next 48 hours *Pyridium as needed Remember this medication will turn your urine . This is normal but it will stain what ever it gets on *You should not use Pyridium for more than 48 hours. If so , follow up with your primary physician to review urine culture and ensure that antibiotic is adequate for infection *Be SURE to follow up anytime for new or worsening symptoms with your family doctor. AND in 48 hours for urine culture results with your family doctor, if you do not have a doctor then you may call back to the [facility] for urine culture results and further treatment. We do recommend that you choose and establish care with a Primary Care Physician. ?AND follow up with them ?in 10-14 days to repeat UA to ensure infection is resolved and blood no longer present *Be sure to let your PCP know that we sent urine cultures from the [facility] so they can follow up to ensure that you area the on the correct antibiotic Call your doctor office and make appointment for 48 hours (2 days from today) ?to follow up and get the results of your urine culture and further treatment Clinical Impressions Clinical Impression: UTI (urinary tract infection) Qualifiers: Urinary tract infection type: site unspecified Hematuria presence: with hematuria Qualified Code(s): N39.0 - Urinary tract infection, site not specified; R31.9 - Hematuria, unspecified Instructions Patient Instructions: DI for Urinary Tract Infection (UTI), Cefdinir Discharge ED Provider: Doris Rojas [facility] General Stated complaint: possible uti Mode of Arrival: Ambulatory Source of Information: Patient Limitations: No Limitations Time Seen by Provider: 07/16/23 10:39 Description of Symptoms (Recalled from Triage Doc. by RN): PATIENT C/O BURNING AND FREQUENCY WITH URINATION X 2 DAYS HEENT Symptoms (Recalled from RN notes): No Resp Symptoms (Recalled from RN notes): No Skin Symptoms (Recalled from RN notes): No MS Symptoms (Recalled from RN notes): No Functional Status (Recalled from RN notes): WNL History of Present Illness Provider Complaint: Patient states that for the last couple of days she has been having some burning with urination, frequency and urgency for several days States that feels like she may have a UTI Related Data Home Medications Medication Instructions Recorded Confirmed lisinopril 20 1 tab PO DAILY Hypertension 02/11/23 07/16/23 mg-hydrochlorothiazide 12.5 mg tablet Previous Rx's Medication Instructions Recorded cefdinir 300 mg capsule 300 mg PO BID #20 caps 07/16/23 phenazopyridine 200 mg tablet 200 mg PO Q8H pain 2 days #6 tabs 07/16/23 (Pyridium) Allergies Allergy/AdvReac Type Severity Reaction Status Date / Time No Known Allergies Allergy Verified 06/12/23 10:03 Worker's Comp Is this a Worker's Comp case?: No [facility] Disclaimer: The information contained in this section may have been updated after the patient was seen, as this information can be updated by other users. Medical History Hypertension Surgical History , [employer]PER[employer]) History of tubal ligati
[2023-07-16 10:48] LABS: Microscopic, Urine URINE MICROSCOPIC (MICROSCOPIC)
[2023-07-16 11:00] VITALS: BP 148/93; PULSE 98; RESP 18; TEMP 36.6; O2SAT 100
[2023-07-16 11:16] LABS: Appearance,Urine CLEAR (Clear); Bilirubin,Urine Negative (Negative); Blood, Urine 1+ (Negative); Color,Urine YELLOW (Yellow); Glucose,Urine (UA) 1+ (Negative); Ketones,Urine TRACE (Negative); Leukocyte Esterase,Urine 2+ (Negative); Nitrate,Urine Negative (Negative); Protein,Urine Negative (Negative)
[2023-07-16 12:03] LABS: Bacteria,Urine 1+ /lpf
== END 2023-07-16 11:39 | disposition home or self-care (01) ==
PROVIDERS: Emergency Provider Nurse Practitioner; PCP Family Medicine
DX: N39.0 Urinary tract infection, site not specified (principal); B96.89 Other specified bacterial agents as the cause of diseases classified elsewhere; R31.9 Hematuria, unspecified; I10 Essential (primary) hypertension
CPT/HCPCS: 81001; 87086; 87088; 87186; 99212; 99214; G0463

== ENCOUNTER → 2023-08-16 10:15 | Outpatient (CLI) | payer MEDICAID, SELFPAY ==
[2023-07-25 18:36] LABS: Basophils # 0.1 K/mm3 (0-0.2); Basophils % 0.5 % (0.1-2.0); Eosinophils # 0.3 K/mm3 (0.0-0.4); Eosinophils % 3.2 % (0.1-12.0); Hematocrit 47.1 % (37.0-47.0); Hemoglobin 15.7 g/dL (12.2-16.2); Lymphocytes # 2.4 K/mm3 (0.7-4.5); Lymphocytes % 26.3 % (10-50); Mean Corpuscular HGB Conc 33.3 g/dL (31.8-35.4); Mean Corpuscular Volume 90.1 fl (81-99); Mean Platelet Volume 9.8 fl (7.4-10.4); Monocytes # 0.5 K/mm3 (0.1-1.0); Monocytes % 5.1 % (1.7-9.3); Neutrophils # 5.9 K/mm3 (1.8-7.8); Neutrophils % 64.9 % (37.0-80.0); Platelet Count 246 K/mm3 (142-424); Red Blood Count 5.23 M/mm3 (4.20-5.40); Red Cell Distribution Width 12.7 % (11.5-17.5); White Blood Count 9.1 K/mm3 (4.8-10.8)
[2023-07-25 19:00] LABS: Alanine Aminotransferase 32 U/L (12-78); Albumin Level 4.1 g/dl (3.5-5.0); Albumin/Globulin Ratio 1.4 (1.1-1.8); Alkaline Phosphatase 69 U/L (38-126); Anion Gap 12.3 mEq/L (5-15); Aspartate Amino Transferase 30 U/L (14-36); Bilirubin,Total 0.5 mg/dl (0.2-1.3); Blood Urea Nitrogen 12 mg/dl (7-17); Calcium 9.3 mg/dl (8.4-10.2); Carbon Dioxide 31 mmol/L (22.0-30.0); Chloride 102 mmol/L (98-107); Chol/HDL Ratio 3.3 (1-3.5); Cholesterol 142 mg/dl (140-200); Estimated Glomerular Filt Rate 82 ml/min (>60); GFR (African American) 99 ML/MIN (>60); Globulin 2.9 g/dL (1.3-3.2); Glucose 108 mg/dl (74-100); HDL Cholesterol 43 mg/dl (40-60); Potassium 4.3 mmoL/L (3.5-5.1); Sodium 141 mmol/L (136-145); Triglycerides 133 mg/dl (30-150); VLDL Cholesterol 27 mg/dL (0-40)
[2023-07-25 19:19] LABS: 25-OH Vitamin D, Total 32.5 ng/mL (30-100)
[2023-07-25 19:32] LABS: Thyroid Stimulating Hormone 2.22 uIU/mL (0.465-4.68)
[2023-07-25 19:42] LABS: Hemoglobin A1C 6.7 % (4.0-6.0)
== END ==
PROVIDERS: PCP Student in an Organized Health Care Education/Training Program; Visit Provider Student in an Organized Health Care Education/Training Program
DX: R81 Glycosuria (principal); N39.0 Urinary tract infection, site not specified; B96.29 Other Escherichia coli [E. coli] as the cause of diseases classified elsewhere; E66.9 Obesity, unspecified; Z68.41 Body mass index [BMI] 40.0-44.9, adult
CPT/HCPCS: 80053; 80061; 82306; 83036; 84443; 85025; 87086; 87088; 87186

== ENCOUNTER 2023-10-28 08:30 | Emergency (ER) | payer MEDICAID, SELFPAY ==
[2023-10-28 08:35] VITALS: BP 136/76; PULSE 92; RESP 18; TEMP 36.7; O2SAT 96; BMI 48.8
[2023-10-28 08:57] LABS: Apearance,Urine Cloudy (Clear); Color,Urine Amber (Yellow); Glucose,Urine (UA) Negative (Negative); Ketones,Urine Negative (Negative); PH,Urine 5.5 (5.0-8.5); Protein,Urine 3+ (Negative); Specific Gravity, Urine 1.025 (1.005-1.030)
[2023-10-28 08:58] LABS: Bilirubin,Urine Negative (Negative); Blood, Urine 3+ (Negative); UTC Leukocyte Esterase,Urine 3+ (Negative); UTC Nitrate,Urine Negative (Negative); Urobilinogen,Urine 0.2 EU/dl (0.2)
--- NOTE | 2023-10-28 08:59 | EXP.UTC ---
Discharge Plan Disposition Patient Disposition: Home, Self-Care Condition: Good Prescriptions Prescriptions: New cephalexin [cephalexin] 500 mg tablet 500 mg PO BID 7 Days Qty: 14 0RF phenazopyridine [Pyridium] 100 mg tablet 100 mg PO TID PRN (Reason: pain) 2 Days Qty: 6 0RF No Action lisinopril-hydrochlorothiazide 20-12.5 mg tablet 1 tab PO DAILY Qty: 60 2RF (DME) blood-glucose meter Misc See Rx Instructions .Route Qty: 1 0RF Rx Instructions: As directed (DME) Blood Glucose Test Strip See Rx Instructions .Route Qty: 50 3RF Rx Instructions: As directed, Check BG BID (DME) lancets 30 gauge misc See Rx Instructions .Route Qty: 100 3RF Rx Instructions: As directed, check BG BID bupropion HCl 150 mg tablet extended release 24 hr 150 mg PO DAILY Qty: 30 2RF semaglutide 0.25 mg or 0.5 mg (2 mg/3 mL) pen injector 0.5 mg SQ WEEKLY Qty: 3 2RF Rx Instructions: for 4 weeks Referrals Follow up/Referrals: Nallely Horne PA [Primary Care Provider] - See instructions Clinical Impressions Clinical Impression: UTI (urinary tract infection) Qualifiers: Urinary tract infection type: acute cystitis Hematuria presence: with hematuria Qualified Code(s): N30.01 - Acute cystitis with hematuria Instructions Patient Instructions: DI for Urinary Tract Infection (UTI) [facility] [facility] [place] General Stated complaint: pain and burning when urinates Mode of Arrival: Ambulatory Source of Information: Patient Limitations: No Limitations Time Seen by Provider: 10/28/23 09:00 Description of Symptoms (Recalled from Triage Doc. by RN): UTI, burning urination HEENT Symptoms (Recalled from RN notes): Yes Resp Symptoms (Recalled from RN notes): No Skin Symptoms (Recalled from RN notes): No MS Symptoms (Recalled from RN notes): No Functional Status (Recalled from RN notes): n/a History of Present Illness Provider Complaint: 33 yr old female presents for painful urination, blood present that started this am Related Data Previous Rx's Medication Instructions Recorded lisinopril 20 1 tab PO DAILY Hypertension #60 07/25/23 mg-hydrochlorothiazide 12.5 mg tabs tablet blood sugar diagnostic (Blood #50 ea 08/01/23 Glucose Test strips) blood-glucose meter #1 ea 08/01/23 lancets 30 gauge #100 ea 08/01/23 bupropion HCl 150 mg 24 hr tablet, 150 mg PO DAILY #30 tabs 10/02/23 extended release semaglutide 0.25 mg or 0.5 mg (2 0.5 mg (0.736 mL) SQ WEEKLY #3 mL 10/11/23 mg/3 mL) subcutaneous pen injector cephalexin 500 mg tablet 500 mg PO BID 7 days #14 tabs 10/28/23 phenazopyridine 100 mg tablet 100 mg PO TID PRN pain 2 days #6 10/28/23 (Pyridium) tabs Allergies Allergy/AdvReac Type Severity Reaction Status Date / Time No Known Allergies Allergy Verified 10/28/23 08:56 Worker's Comp Is this a Worker's Comp case?: No [facility] Disclaimer: The information contained in this section may have been updated after the patient was seen, as this information can be updated by other users. 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
[2023-10-28 09:10] VITALS: BP 136/76; PULSE 92; RESP 18; TEMP 36.7; O2SAT 96
== END 2023-10-28 09:10 | disposition home or self-care (01) ==
PROVIDERS: Emergency Provider Nurse Practitioner Family; PCP Student in an Organized Health Care Education/Training Program
DX: N39.0 Urinary tract infection, site not specified (principal); B96.29 Other Escherichia coli [E. coli] as the cause of diseases classified elsewhere; R31.9 Hematuria, unspecified; I10 Essential (primary) hypertension
CPT/HCPCS: 81003; 87086; 99212; 99214; G0463

== ENCOUNTER 2023-12-14 19:52 | Outpatient (CLI) | payer MEDICAID, SELFPAY ==
[2023-12-14 19:13] LABS: Adenovirus,PCR Not Detected (NotDetected); Coronavirus 19, PCR Not Detected (NotDetected); Coronavirus 229E Not Detected (NotDetected); Coronavirus NL63 Not Detected (NotDetected); Coronavirus OC43 Not Detected (NotDetected); Coronovirus HKU1,PCR Not Detected (NotDetected); Human Metapneumovirus Not Detected (NotDetected); Influenza A, PCR Not Detected (NotDetected); Influenza AH1, 2009 Not Detected (NotDetected); Influenza AH1, PCR Not Detected (NotDetected); Influenza AH3,PCR Not Detected (NotDetected); Influenza B, PCR Not Detected (NotDetected); Parainfluenza 1, PCR Not Detected (NotDetected); Parainfluenza 2, PCR Not Detected (NotDetected); Parainfluenza 3, PCR Not Detected (NotDetected); Parainfluenza 4, PCR Not Detected (NotDetected); Respiratory Syncytial Virus Not Detected (NotDetected)
[2023-12-14 23:12] LABS: Rhinovirus/Enterovirus Detected (NotDetected)
== END 2023-12-14 23:59 ==
LOC: LAB.DROPOF 19:52
PROVIDERS: PCP Student in an Organized Health Care Education/Training Program; Visit Provider Student in an Organized Health Care Education/Training Program
DX: R05.9 Cough, unspecified (principal); B34.1 Enterovirus infection, unspecified
CPT/HCPCS: 87070; 87632; 87635

== ENCOUNTER 2024-01-01 20:09 | Outpatient (CLI) | payer MEDICAID, SELFPAY ==
[2024-01-01 19:30] LABS: Basophils # 0.1 K/mm3 (0-0.2); Basophils % 1.2 % (0.1-2.0); Eosinophils # 0.2 K/mm3 (0.0-0.4); Eosinophils % 2.9 % (0.1-12.0); Hematocrit 47.6 % (37.0-47.0); Lymphocytes # 2.2 K/mm3 (0.7-4.5); Mean Corpuscular HGB Conc 33.7 g/dL (31.8-35.4); Mean Corpuscular Volume 92.2 fl (81-99); Mean Platelet Volume 9.8 fl (7.4-10.4); Monocytes # 0.4 K/mm3 (0.1-1.0); Monocytes % 5.4 % (1.7-9.3); Neutrophils # 4.9 K/mm3 (1.8-7.8); Neutrophils % 62.5 % (37.0-80.0); Platelet Count 234 K/mm3 (142-424); Red Blood Count 5.16 M/mm3 (4.20-5.40); Red Cell Distribution Width 12.8 % (11.5-17.5); White Blood Count 7.8 K/mm3 (4.8-10.8)
[2024-01-01 20:00] LABS: Alanine Aminotransferase 23 U/L (12-78); Albumin Level 4.3 g/dl (3.5-5.0); Albumin/Globulin Ratio 1.8 (1.1-1.8); Alkaline Phosphatase 45 U/L (38-126); Anion Gap 10.1 mEq/L (5-15); Aspartate Amino Transferase 26 U/L (14-36); Bilirubin,Total 0.5 mg/dl (0.2-1.3); Blood Urea Nitrogen 11 mg/dl (7-17); Calcium 9.2 mg/dl (8.4-10.2); Carbon Dioxide 31 mmol/L (22.0-30.0); Chloride 104 mmol/L (98-107); Chol/HDL Ratio 4.7 (1-3.5); Cholesterol 177 mg/dl (140-200); Estimated Glomerular Filt Rate 82 ml/min (>60); GFR (African American) 99 ML/MIN (>60); Globulin 2.4 g/dL (1.3-3.2); Glucose 73 mg/dl (74-100); HDL Cholesterol 38 mg/dl (40-60); Potassium 4.1 mmoL/L (3.5-5.1); Sodium 141 mmol/L (136-145); Total Protein,Serum 6.7 g/dl (6.3-8.2); Triglycerides 159 mg/dl (30-150); VLDL Cholesterol 32 mg/dL (0-40)
[2024-01-01 20:12] LABS: Direct LDL Cholesterol 95.85 mg/dL (100-129)
[2024-01-01 20:18] LABS: 25-OH Vitamin D, Total 13.2 ng/mL (30-100)
[2024-01-01 20:25] LABS: Creatinine,Urine Random 217 mg/dL (Not Estab.)
[2024-01-01 20:30] LABS: Microalbumin/Creatinine Ratio 7.6
[2024-01-01 20:31] LABS: Thyroid Stimulating Hormone 1.83 uIU/mL (0.465-4.68)
[2024-01-01 20:33] LABS: Hemoglobin A1C 5.8 % (4.0-6.0)
== END 2024-01-01 23:59 ==
LOC: LAB.DROPOF 20:09
PROVIDERS: PCP Student in an Organized Health Care Education/Training Program; Visit Provider Student in an Organized Health Care Education/Training Program
DX: E11.9 Type 2 diabetes mellitus without complications (principal); I10 Essential (primary) hypertension; E55.9 Vitamin D deficiency, unspecified; Z13.21 Encounter for screening for nutritional disorder; Z13.29 Encounter for screening for other suspected endocrine disorder; Z68.41 Body mass index [BMI] 40.0-44.9, adult; Z79.85 Long-term (current) use of injectable non-insulin antidiabetic drugs
CPT/HCPCS: 80053; 80061; 82043; 82306; 82570; 83036; 84443; 85025

== ENCOUNTER 2024-03-21 12:49 | Outpatient (CLI) | payer MEDICAID, SELFPAY ==
[2024-03-21 18:39] LABS: Basophils # 0.1 K/mm3 (0-0.2); Basophils % 1.5 % (0.1-2.0); Eosinophils # 0.2 K/mm3 (0.0-0.4); Eosinophils % 2.9 % (0.1-12.0); Hematocrit 47.1 % (37.0-47.0); Hemoglobin 15.8 g/dL (12.2-16.2); Lymphocytes % 30.6 % (10-50); Mean Corpuscular HGB Conc 33.5 g/dL (31.8-35.4); Mean Corpuscular Hemoglobin 30.8 pg (27.0-31.2); Mean Corpuscular Volume 91.9 fl (81-99); Mean Platelet Volume 9.4 fl (7.4-10.4); Monocytes # 0.4 K/mm3 (0.1-1.0); Monocytes % 6.3 % (1.7-9.3); Neutrophils # 3.9 K/mm3 (1.8-7.8); Neutrophils % 58.7 % (37.0-80.0); Platelet Count 230 K/mm3 (142-424); Red Blood Count 5.12 M/mm3 (4.20-5.40); White Blood Count 6.6 K/mm3 (4.8-10.8)
[2024-03-21 18:58] LABS: Alanine Aminotransferase 20 U/L (12-78); Albumin Level 4.4 g/dl (3.5-5.0); Albumin/Globulin Ratio 1.8 (1.1-1.8); Alkaline Phosphatase 44 U/L (38-126); Anion Gap 9.3 mEq/L (5-15); Aspartate Amino Transferase 25 U/L (14-36); Bilirubin,Total 0.6 mg/dl (0.2-1.3); Blood Urea Nitrogen 15 mg/dl (7-17); Calcium 9.5 mg/dl (8.4-10.2); Carbon Dioxide 33 mmol/L (22.0-30.0); Chloride 104 mmol/L (98-107); Chol/HDL Ratio 4.5 (1-3.5); Cholesterol 162 mg/dl (140-200); Estimated Glomerular Filt Rate 71 ml/min (>60); GFR (African American) 86 ML/MIN (>60); Globulin 2.4 g/dL (1.3-3.2); Glucose 79 mg/dl (74-100); HDL Cholesterol 36 mg/dl (40-60); Potassium 4.3 mmoL/L (3.5-5.1); Sodium 142 mmol/L (136-145); Total Protein,Serum 6.8 g/dl (6.3-8.2); Triglycerides 137 mg/dl (30-150); VLDL Cholesterol 27 mg/dL (0-40)
[2024-03-21 19:09] LABS: Direct LDL Cholesterol 87.55 mg/dL (100-129)
[2024-03-21 19:10] LABS: Hemoglobin A1C 5.7 % (4.0-6.0)
[2024-03-21 19:13] LABS: Troponin I < 0.01 ng/ml (0.00-0.034)
[2024-03-21 19:14] LABS: 25-OH Vitamin D, Total 58.2 ng/mL (30-100)
[2024-03-21 19:27] LABS: Iron 108 ug/dL (37-170)
[2024-03-21 19:30] LABS: Thyroid Stimulating Hormone 1.66 uIU/mL (0.465-4.68)
[2024-03-21 19:37] LABS: Total Iron Binding Capacity 326 ug/dL (265-497)
[2024-03-21 19:49] LABS: Vitamin B12 416 pg/mL (239-931)
[2024-03-21 20:03] LABS: Ferritin 73.5 ng/ml (6.24-137)
== END 2024-03-21 23:59 | disposition home or self-care (01) ==
LOC: LAB.DROPOF 03-22 12:49
PROVIDERS: PCP Student in an Organized Health Care Education/Training Program; Visit Provider Student in an Organized Health Care Education/Training Program
DX: E11.9 Type 2 diabetes mellitus without complications (principal); R53.83 Other fatigue; E55.9 Vitamin D deficiency, unspecified; R07.9 Chest pain, unspecified; Z68.41 Body mass index [BMI] 40.0-44.9, adult; Z79.85 Long-term (current) use of injectable non-insulin antidiabetic drugs
CPT/HCPCS: 80053; 80061; 82306; 82607; 82728; 83036; 83540; 83550; 84443; 84484; 85025

== ENCOUNTER 2024-03-23 14:26 | Outpatient (CLI) | payer MEDICAID, SELFPAY ==
--- NOTE | 2024-03-23 14:49 | XR_ITS ---
PROCEDURE INFORMATION: Exam: XR Chest Exam date and time: 03/23/2024 2:42 PM Age: 34 years old Clinical indication: Pain; Angina pectoris; Additional info: Chest pain TECHNIQUE: Imaging protocol: Radiologic exam of the chest. Views: 2 views. COMPARISON: CR XR CHEST 2V 11/17/2021 7:33 AM FINDINGS: Lungs: No evidence of acute airspace infiltrate. No pulmonary edema. Pleural spaces: No significant pleural effusion. No pneumothorax. Heart/Mediastinum: Cardiomediastinal silouhette is within normal limits. Bones/joints: No evidence of acute osseous abnormality. IMPRESSION: No acute findings.
== END 2024-03-23 23:59 | disposition home or self-care (01) ==
LOC: RAD 14:28
PROVIDERS: PCP Student in an Organized Health Care Education/Training Program; Visit Provider Student in an Organized Health Care Education/Training Program
DX: R07.9 Chest pain, unspecified (principal)
CPT/HCPCS: 71046

== ENCOUNTER 2024-05-01 11:49 | Outpatient (CLI) | payer MEDICAID, SELFPAY ==
--- NOTE | 2024-05-01 11:50 | CA_ITS ---
APPROVED REPORT Exam: Exercise Treadmill Technologist: Mandy Ulrich, Ht: 5 ft 5 in Wt: 246 lbs BSA: 2.16 m2 HR: 87 bpm BP: 131/82 mmHg Rhythm: NSR, rightward axis, poor R wave progression, inferior T wave abnormalities Medical History Medications: Lisinopril,,,,, Vit D3,,,,, Lancets,,,,, SeMaglutide,,,,, Cardiac Risk Factors: HTN, Diabetes (non-insulin) Stress Test Details Test: Derian HR Resting HR: 102 bpm Max Heart Rate (APMHR): 185 bpm Max HR Achieved: 164 bpm Target HR (85% APMHR): 157 bpm % of APMHR: 89 Recovery HR: 142 bpm HR response to stress: Normal HR response to stress BP Resting BP: 110.0/75 mmHg Max BP: 176/72 mmHg Recovery BP: 134.0/86.0 mmHg BP response to stress: Normal blood pressure response to stress. ECG Resting ECG: NSR, rightward axis, poor R wave progression, inferior T wave abns Stress EC.[address] depression Arrhythmia: None Recovery ECG: Return to baseline within 3 minutes of recovery Recovery Arrhythmia: None Clinical Exercise duration: 06:30 min Highest Stage Achieved: Exercise capacity: 7.0 METs Overall Exercise Capacity for Age: Fair Stress ECG Conclusion During derian protocol pt walked 6:30 minutes. She was able to achieve a total of 7.0 METs. She has fair exercise capacity compared to age and sex matched peers. She has normal HR and BP response to exercise. Symptoms: No CP noted. Ectopy: No arrhythmias noted. ST changes: 0.[address] depression Conclusion Fair exercise capacity. No evidnece of ischemia on ECG at peak stress. GXT only. Test Summary REST . . . . . . . Sitting REST . . . . . . . Standing REST 05:38 0.0 0.0 102 . 110/ 75 . . Stage 1 01:00 10.0 1.7 117 . . . . Stage 1 02:00 10.0 1.7 132 . . . . Stage 1 03:00 10.0 1.7 138 . 136/ 76 . . Stage 2 01:00 12.0 2.5 144 . . . . Stage 2 02:00 12.0 2.5 151 . . . . Stage 2 03:00 12.0 2.5 155 . 176/ 72 . . Stage 3 00:30 14.0 3.4 162 . . . Stop exercise at 06:30 RECOVERY 01:00 0.0 0.0 144 . . . . RECOVERY 02:00 0.0 0.0 123 . 134/ 86 . . RECOVERY 03:00 0.0 0.0 120 . 152/ 83 . . RECOVERY 04:00 0.0 0.0 118 . 152/ 83 . . RECOVERY 05:00 0.0 0.0 113 . 136/ 74 . . RECOVERY 05:19 0.0 0.0 114 . 136/ 74 . . Electronically signed by : Shivani Argueta MD 05/05/2024 01:38:57
== END 2024-05-01 23:59 | disposition home or self-care (01) ==
LOC: RT 11:50
PROVIDERS: PCP Student in an Organized Health Care Education/Training Program; Visit Provider Nurse Practitioner
DX: R07.9 Chest pain, unspecified (principal); R94.31 Abnormal electrocardiogram [ECG] [EKG]
CPT/HCPCS: 93017; 93018

== ENCOUNTER 2024-07-03 07:42 | Emergency (ER) | payer MEDICAID, SELFPAY ==
[2024-07-03 07:49] VITALS: BP 126/82; PULSE 76; RESP 18; TEMP 36.7; O2SAT 97; BMI 48.8
--- NOTE | 2024-07-03 07:57 | CT_ITS ---
FINAL REPORT TECHNIQUE: Axial imaging of the lumbar spine was obtained without contrast. Sagittal and coronal reformatted images were also obtained and reviewed. This study was performed with techniques to keep radiation doses as low as reasonably achievable (ALARA). Individualized dose reduction techniques using automated exposure control or adjustment of mA and/or kV according to the patient's size were employed. CLINICAL HISTORY: atraumatic low back pain/tenderness FINDINGS: There is no fracture. The vertebral alignment is normal. The disc spaces are preserved.There is no evidence of significant central canal stenosis. L1-L2: No evidence of central canal stenosis or neural foraminal narrowing. L2-L3: No evidence of central canal stenosis or neural foraminal narrowing. L3-L4: No evidence of central canal stenosis or neural foraminal narrowing. L4-L5: Left foraminal disc protrusion is present with mild left neural foraminal narrowing. L5-S1: An annular disc bulge is present. There is right L5 pars defect with mild left neural foraminal narrowing. IMPRESSION: Left foraminal disc protrusion at L4-5. Right L5 pars defect. Reviewed, Interpreted and Dictated by Endy Quezada III, MD Transcribed by Priscilla Bacon Authenticated and [facility]
--- NOTE | 2024-07-03 07:59 | ED_ITS ---
Discharge Plan Disposition Patient Disposition: Home, Self-Care Condition: Good Prescriptions Prescriptions: New naproxen 500 mg tablet 500 mg PO BID Qty: 20 0RF lidocaine [Lidoderm] 5 % adhesive patch,medicated 1 patch topical DAILY Qty: 15 0RF Rx Instructions: leave on most painful area for up to 12 hrs methocarbamol 750 mg tablet 750 mg PO Q8H PRN (Reason: pain) Qty: 20 0RF nitrofurantoin monohyd/m-cryst [Macrobid] 100 mg capsule 100 mg PO BID 5 Days Qty: 10 0RF Rx Instructions: must administer with a meal/food No Action (DME) blood-glucose meter Misc See Rx Instructions .Route Qty: 1 0RF Rx Instructions: As directed (DME) Blood Glucose Test Strip See Rx Instructions .Route Qty: 50 3RF Rx Instructions: As directed, Check BG BID (DME) lancets 30 gauge misc See Rx Instructions .Route Qty: 100 3RF Rx Instructions: As directed, check BG BID lisinopril-hydrochlorothiazide 20-12.5 mg tablet 2 tab PO DAILY 90 Days Qty: 180 2RF cholecalciferol (vitamin D3) 1,250 mcg (50,000 unit) capsule 1,250 mcg PO WEEKLY Qty: 12 0RF semaglutide 0.25 mg or 0.5 mg (2 mg/3 mL) pen injector 0.5 mg SQ WEEKLY Qty: 3 2RF Rx Instructions: for 4 weeks Referrals Follow up/Referrals: Nallely Horne PA [Primary Care Provider] - See instructions Activity Restrictions/Add. Instructions Additional Instructions/Restrictions: You were evaluated in the emergency department today. Please potato picker your prescriptions at the pharmacy and take them as prescribed. Complete the full course of antibiotics. You may also take Tylenol every 4-6 hours as needed for pain. Follow-up closely with your primary care provider for reassessment. Return to the emergency department for new or worsening symptoms. Clinical Impressions Clinical Impression: Low back pain, UTI (urinary tract infection), Bulging of intervertebral disc between L4 and L5, Spondylolysis of lumbar region Stand Alone Forms Stand Alone Forms: Work/School Release Instructions Patient Instructions: DI for Low Back Pain, DI for Urinary Tract Infection (UTI) Print Language Print Language: Sammarinese Discharge ED Provider: Rylee Adame General Adult HPI General Chief complaint: Back Pain/Injury Stated complaint: Lower back pain Time Seen by Provider: 07/03/24 07:52 Mode of Arrival: Ambulatory Source of Information: Patient Limitations: No Limitations Description of Symptoms (Recalled from ER Triage Doc. by RN): pt states she woke up with lower back pain 3d ago. pt states her pain is dull in nature and an 8/10. pt denies abd pain/ urinary symptoms. pt reports the pain does not radiate. pt denies injury. History of Present Illness HPI narrative: This patient is a 34-year-old female with a history of obesity, diabetes on Ozempic, hypertension presenting to the emergency department for evaluation with concern for low back pain. Patient states that she has had low back pain that she woke up with approximately 3 days ago. It is mostly in the middle of her back, is dull in nature, and is 8 out of 10. 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 No numbness, tingling, saddle anesthesia, incontinence, retention, or other concerns. No radiation of pain. No abdominal pain, nausea, vomiting, or urinary symptoms noted. She states that she came in today because it took her an hour to get out of bed, as the pain was much worse this morning Related Data Previous Rx's ?Medication ?Instructions ?Recorded blood sugar diagnostic (Blood #50 ea 08/01/23 Glucose Test strips) blood-glucose meter #1 ea 08/01/23 lancets 30 gauge #100 ea 08/01/23 lisinopril 20 2 tab PO DAILY Hypertension 90 03/26/24 mg-hydrochlorothiazide 12.5 mg days #180 tabs tablet cholecalciferol (vitamin D3) 1,250 1,250 mcg PO WEEKLY #12 caps 05/21/24 mcg (50,000 unit) capsule semaglutide 0.25 mg or 0.5 mg (2 0.5 mg (0.736 mL) SQ WEEKLY #3 mL 06/20/24 mg/3 mL) subcutaneous pen injector lidocaine 5 % topical patch 1 patch topical DAILY #15 ea 07/03/24 (Lidoderm) methocarbamol 750 mg tablet 750 mg PO Q8H PRN pain #20 tabs 07/03/24 naproxen 500 mg tablet 500 mg PO BID #20 tabs 07/03/24 nitrofurantoin 100 mg PO BID 5 days #10 caps 07/03/24 monohydrate/macrocrystals 100 mg capsule (Macrobid) Allergies Allergy/AdvReac Type Severity Reaction Status Date / Time No Known Allergies Allergy Verified 07/03/24 07:54 [facility] Disclaimer: The information contained in this section may have been updated after the patient was seen, as this information can be updated by other users. Medical History Diabetes Hypertension Chest pain Surgical History History of tubal ligation Family History Other No significant family history Social History Smoking Status: Never smoker alcohol intake: never substance use type: denies use current occupational status: other Travel in the last 8 weeks: None ROS Obtained: Yes All systems reviewed & no additional complaints except as documented Physical Exam General General appearance: alert and in no apparent distress Head Head exam: atraumatic and normocephalic Eye Eye exam: Present normal appearance, PERRL and EOMI ENT ENT exam: Present normal exam, normal oropharynx, mucous membranes moist and normal external ear exam Neck Neck exam: Present normal inspection, full ROM and trachea midline; Absent tenderness Chest Chest inspection: Present normal inspection and symmetric chest wall rise; Absent tenderness Respiratory Respiratory exam: Present normal lung sounds bilaterally; Absent respiratory distress, wheezes, stridor or accessory muscle use Cardiovascular Cardiovascular exam: Present regular rate and normal rhythm Abdominal Exam Abdominal exam: Present soft; Absent distention, tenderness or guarding Extremities Exam Extremities exam: Present normal inspection, full ROM and normal capillary refill; Absent tenderness or edema Back Exam Back exam: Present full ROM and paraspinal tenderness Neurological Exam Neurological exam: Present alert, oriented X3, CN II-XII intact and normal gait; Absent motor sensory deficit Psychiatric Psychiatric exam: Present normal affect and normal mood Skin Skin exam: Present warm and dry Medical Decision Making Medical Records Medical records reviewed: Yes I reviewed the patient's medical records. Chao Inquiry Pt receiving controlled substance: No Vital Signs: 07/03/24 07:49 07/03/24 09:35 07/03/24 10:46 Temperature 98.1 F 98.1 F Temperature Source Oral Pulse Rate 82 82 Pulse Rate [Left] 76 Respiratory Rate 18 16 Blood Pressure 121/75 122/69 Blood Pressure [Right Arm] 126/82 Blood Pressure Mean [Right Arm] 96 Blood Pressure Source [Right Arm] Automatic Cuff Blood Pressure Position [Right Arm] Sitting 02 Sat by Pulse Oximetry 97 99 Oxygen Delivery Method Room Air Room Air Lab Data Lab results reviewed: Yes I reviewed the patient's lab results. Lab Results 07/03/24 08:04: WBC 8.6, RBC 4.83, Hgb 15.2, Hct 44.3, MCV 91.8, MCH 31.5 H, MCHC 34.3, RDW 13.1, Plt Count 203, MPV 7.9, Neut % (Auto) 66.0, Lymph % (Auto) 24.8, Dickinson % (Auto) 4.7, Eos % (Auto) 3.5, Baso % (Auto) 1.1, Neut # (Auto) 5.7, Lymph # (Auto) 2.1, Dickinson # (Auto) 0.4, Eos # (Auto) 0.3, Baso # (Auto) 0.1, Sodium 141, Potassium 3.9, Chloride 107, Carbon Dioxide 29, Anion Gap 8.9, BUN 17, Creatinine 0.80, Estimated Creat Clear 71, Estimated GFR 82, Est GFR ( Amer) 99, Glucose 126 H, Calcium 8.9, Total Bilirubin 0.6, AST 29, ALT 26, Alkaline Phosphatase 41, Total Protein 6.9, Albumin 4.1, Globulin 2.8, Albumin/Globulin Ratio 1.5, Lipase 68 07/03/24 08:15: Urine Color Yellow, Urine Appearance Clear, Urine pH 6.0, Ur Specific [place] >= 1.030, Urine Protein Negative, Urine Glucose (UA) Negative, Urine Ketones Negative, Urine Blood Trace-i, Urine Nitrate Positive, Urine Bilirubin Negative, Urine Urobilinogen 0.2, Ur Leukocyte Esterase 1+ A, Urine RBC Occasional, Urine WBC 50-100, Ur Squamous Epith Cells 10-20, Urine Bacteria 1+, Urine Mucus Trace, Urine HCG, Qual Negative 07/03/24 08:04 07/03/24 08:04 Orders (Tests/Meds): ED MEDICATIONS Discontinued Medications Generic Name Dose Route Start Last Admin Trade Name Freq PRN Reason Stop Dose Admin Acetaminophen 1,000 mg 07/03/24 07:57 07/03/24 08:02 Acetaminophen 500mg Tab PO 07/03/24 07:58 1,000 mg ONCE ONE Administration Ketorolac Tromethamine 30 mg 07/03/24 07:57 07/03/24 08:04 Ketorolac 30mg/Ml Vial IM 07/03/24 07:58 Not Given ONCE ONE Ketorolac Tromethamine 15 mg 07/03/24 07:59 07/03/24 08:03 Ketorolac 30mg/Ml Vial IV 07/03/24 08:00 15 mg ONCE ONE Administration Lidocaine 1 each 07/03/24 07:57 07/03/24 08:02 Lidocaine 5% Transdermal Patch TP 07/03/24 07:58 1 each ONCE ONE Administration Methocarbamol 500 mg 07/03/24 07:58 07/03/24 08:03 Methocarbamol 500mg Tablet PO 07/03/24 07:59 500 mg ONCE ONE Administration ORDERS Category Date Time Status CT abdomen pelvis wo con Stat Cat Scan 07/03/24 08:[address] lumbar spine wo con Stat Cat Scan 07/03/24 07:57 Completed Complete Blood Count Auto Diff Stat Lab 07/03/24 08:04 Completed Comprehensive Metabolic Panel Stat Lab 07/03/24 08:04 Completed Lipase Stat Lab 07/03/24 08:04 Completed UA [Urinalysis and Microscopic] Stat Lab 07/03/24 08:15 Completed Urine , HCG Qual. Stat Lab 07/03/24 08:15 Completed Urine Culture Stat Micro 07/03/24 08:15 Received Medical Decision Narrative: In summary, this patient is a 34-year-old female presenting to the Emergency Department for evaluation of low back pain that is worse with positions and movements. Differential diagnoses considered include but are not limited to musculoskeletal strain/sprain, disc herniation, lumbar radiculopathy, pyelonephritis, ureterolithiasis. Ruling out the most morbid conditions drove assessment. It should be noted patient's history includes hypertension and diabetes which may or may not be at goal therapy. This complicates all aspects of care by increasing patient's risk for morbidity. On exam, the patient is resting comfortably. She is neurologically intact with no alarm findings or symptoms concerning for cauda equina syndrome or spinal cord compression. Abdominal exam is benign with no tenderness to suggest acute intra-abdominal pathology. Workup included CBC, CMP, lipase, urinalysis, urine , CT abdomen pelvis without IV contrast and CT lumbar spine without IV contrast. She was given IV Toradol, oral Tylenol, oral Robaxin, and topical Lidoderm patch for symptomatic improvement. I independently interpreted CT scans prior to the radiologist read and noted cystitis as well as spondylolysis of L5 but I did not see acute fracture. Please see their read for final interpretation. They noted L4-5 disc herniation. Labs were obtained that demonstrated urine is concerning for infection without significant proteinuria. On reassessment, patient had good improvement after administration of interventions above. She is resting comfortably and remains neurologically intact. I feel that she likely has back pain related to her disc herniation and also incidentally has findings concerning for urinary tract infection. She was given prescriptions for Macrobid, naproxen, Robaxin, and Lidoderm patches. She was discharged with instructions for close outpatient follow-up and strict return precautions. Critical Care Critical Care Time Critical Care Time: No
[2024-07-03] MEDS: LIDOCAINE 5% TRANSDERMAL PATCH 1 EACH TP (08:02)
[2024-07-03] MEDS: ACETAMINOPHEN 500MG TAB 1000 MG PO (08:02)
[2024-07-03] MEDS: KETOROLAC 30MG/ML VIAL 15 MG IV (08:03)
[2024-07-03] MEDS: METHOCARBAMOL 500MG TABLET 500 MG PO (08:03)
[2024-07-03 08:14] LABS: Basophils # 0.1 K/mm3 (0-0.2); Basophils % 1.1 % (0.1-2.0); Eosinophils # 0.3 K/mm3 (0.0-0.4); Eosinophils % 3.5 % (0.1-12.0); Hematocrit 44.3 % (37.0-47.0); Hemoglobin 15.2 g/dL (12.2-16.2); Lymphocytes # 2.1 K/mm3 (0.7-4.5); Lymphocytes % 24.8 % (10-50); Mean Corpuscular HGB Conc 34.3 g/dL (31.8-35.4); Mean Corpuscular Hemoglobin 31.5 pg (27.0-31.2); Mean Corpuscular Volume 91.8 fl (81-99); Mean Platelet Volume 7.9 fl (7.4-10.4); Monocytes # 0.4 K/mm3 (0.1-1.0); Monocytes % 4.7 % (1.7-9.3); Neutrophils # 5.7 K/mm3 (1.8-7.8); Platelet Count 203 K/mm3 (142-424); Red Blood Count 4.83 M/mm3 (4.20-5.40); Red Cell Distribution Width 13.1 % (11.5-17.5); White Blood Count 8.6 K/mm3 (4.8-10.8)
[2024-07-03 08:23] LABS: Microscopic, Urine URINE MICROSCOPIC (MICROSCOPIC)
[2024-07-03 08:25] LABS: Appearance,Urine CLEAR (Clear); Bilirubin,Urine Negative (Negative); Blood, Urine TRACE-I (Negative); Color,Urine YELLOW (Yellow); Glucose,Urine (UA) Negative (Negative); Ketones,Urine Negative (Negative); Leukocyte Esterase,Urine 1+ (Negative); Nitrate,Urine POSITIVE (Negative); Protein,Urine Negative (Negative); Specific Gravity, Urine >= 1.030 (1.005-1.030); Urobilinogen,Urine 0.2 EU/dl (0.2)
--- NOTE | 2024-07-03 08:32 | CT_ITS ---
FINAL REPORT TECHNIQUE: Axial images through the abdomen and pelvis were performed without contrast. This study was performed with techniques to keep radiation doses as low as reasonably achievable, (ALARA). Individualized dose reduction techniques using automated exposure control or adjustment of mA and/or kV according to the patient's size were employed. CLINICAL HISTORY: low back pain, concern for pyelo FINDINGS: ABDOMEN: The lung bases are clear. The heart size is normal. Limited images of the liver are unremarkable. The spleen is normal. No adrenal mass is identified. The aorta is normal in caliber. There is no significant free fluid or adenopathy. There are calcifications of the renal pyramids bilaterally. There are multiple less than 3 mm bilateral nonobstructing stones. There is no hydronephrosis. PELVIS: The appendix is normal. Scattered colonic diverticula are identified. There is a small periumbilical hernia containing fat. There is a 23 mm probable cyst in the right ovary. There is bladder wall thickening with adjacent stranding, likely inflammatory but cystitis is not excluded. There is no significant free fluid or adenopathy. IMPRESSION: Bladder wall thickening, likely inflammatory but cystitis is not excluded. Nephrolithiasis. Parenchymal calcification. Reviewed, Interpreted and Dictated by Endy Quezada III, MD Transcribed by Priscilla Bacon Authenticated and [facility]
[2024-07-03 08:35] LABS: Albumin Level 4.1 g/dl (3.5-5.0); Chloride 107 mmol/L (98-107); Potassium 3.9 mmoL/L (3.5-5.1); Sodium 141 mmol/L (136-145)
[2024-07-03 08:36] LABS: Urine Pregnancy, HCG Qual. Negative (Negative)
[2024-07-03 08:37] LABS: Alanine Aminotransferase 26 U/L (12-78); Alkaline Phosphatase 41 U/L (38-126); Anion Gap 8.9 mEq/L (5-15); Aspartate Amino Transferase 29 U/L (14-36); Bilirubin,Total 0.6 mg/dl (0.2-1.3); Blood Urea Nitrogen 17 mg/dl (7-17); Carbon Dioxide 29 mmol/L (22.0-30.0); Creatinine Clearance Estimated 71 mL/min (50-200); Estimated Glomerular Filt Rate 82 ml/min (>60); GFR (African American) 99 ML/MIN (>60)
[2024-07-03 08:38] LABS: Albumin/Globulin Ratio 1.5 (1.1-1.8); Calcium 8.9 mg/dl (8.4-10.2); Globulin 2.8 g/dL (1.3-3.2); Glucose 126 mg/dl (74-100); Lipase 68 U/L (23-300); Total Protein,Serum 6.9 g/dl (6.3-8.2)
[2024-07-03 09:28] LABS: Bacteria,Urine 1+ /lpf; Mucus,Urine Trace /lpf; RBC,Urine Occasional #/hpf (0-3); WBC,Urine 50-100 #/hpf (0-3)
[2024-07-03 09:35] VITALS: BP 121/75; PULSE 82; O2SAT 99
--- NOTE | 2024-07-03 09:36 | PC.NURSE ---
rounded on pt
[2024-07-03 10:46] VITALS: BP 122/69; PULSE 82; RESP 16; TEMP 36.7; O2SAT 97
--- NOTE | 2024-07-05 13:29 | PC.NURSE ---
final urine culture discussed with , pt dc with macrobid, ntd
== END 2024-07-03 10:47 | disposition home or self-care (01) ==
PROVIDERS: Emergency Provider Emergency Medicine; PCP Student in an Organized Health Care Education/Training Program
DX: N39.0 Urinary tract infection, site not specified (principal); B96.29 Other Escherichia coli [E. coli] as the cause of diseases classified elsewhere; M43.06 Spondylolysis, lumbar region; M51.36 Other intervertebral disc degeneration, lumbar region; M54.50 Low back pain, unspecified; E11.9 Type 2 diabetes mellitus without complications; I10 Essential (primary) hypertension; Z79.85 Long-term (current) use of injectable non-insulin antidiabetic drugs; E66.01 Morbid (severe) obesity due to excess calories; Z68.42 Body mass index [BMI] 45.0-49.9, adult
CPT/HCPCS: 72131; 74176; 80053; 81001; 81025; 83690; 85025; 87086; 87088; 87186; 96372; 96374; 99285; J1885

== ENCOUNTER 2024-11-04 10:53 | Outpatient (CLI) | payer MEDICAID, SELFPAY ==
[2024-11-04 18:00] LABS: MANUAL DIFFERENTIAL MANUAL DIFFERENTIAL (MANUAL DIFF)
[2024-11-04 18:12] LABS: Basophils # 0.1 K/mm3 (0-0.2); Basophils % 1.1 % (0.1-2.0); Eosinophils # 0.3 K/mm3 (0.0-0.4); Eosinophils % 3.4 % (0.1-12.0); Hematocrit 44.4 % (37.0-47.0); Lymphocytes # 2.5 K/mm3 (0.7-4.5); Lymphocytes % 33.8 % (10-50); Mean Corpuscular HGB Conc 33.8 g/dL (31.8-35.4); Mean Corpuscular Hemoglobin 30.6 pg (27.0-31.2); Mean Corpuscular Volume 90.6 fl (81-99); Mean Platelet Volume 8.8 fl (7.4-10.4); Monocytes # 0.4 K/mm3 (0.1-1.0); Monocytes % 4.9 % (1.7-9.3); Neutrophils # 4.2 K/mm3 (1.8-7.8); Neutrophils % 56.9 % (37.0-80.0); Platelet Count 272 K/mm3 (142-424); Red Blood Count 4.91 M/mm3 (4.20-5.40); Red Cell Distribution Width 12.6 % (11.5-17.5); White Blood Count 7.4 K/mm3 (4.8-10.8)
[2024-11-04 18:53] LABS: 25-OH Vitamin D, Total 51.9 ng/mL (30-100)
[2024-11-04 19:26] LABS: Alanine Aminotransferase 25 U/L (12-78); Albumin Level 4.1 g/dl (3.5-5.0); Albumin/Globulin Ratio 1.7 (1.1-1.8); Alkaline Phosphatase 39 U/L (38-126); Anion Gap 10.1 mEq/L (5-15); Aspartate Amino Transferase 28 U/L (14-36); Bilirubin,Total 0.6 mg/dl (0.2-1.3); Blood Urea Nitrogen 16 mg/dl (7-17); Calcium 9.4 mg/dl (8.4-10.2); Carbon Dioxide 31 mmol/L (22.0-30.0); Chloride 104 mmol/L (98-107); Chol/HDL Ratio 3.5 (1-3.5); Cholesterol 154 mg/dl (140-200); Estimated Glomerular Filt Rate 71 ml/min (>60); GFR (African American) 86 ML/MIN (>60); Globulin 2.4 g/dL (1.3-3.2); Glucose 75 mg/dl (74-100); HDL Cholesterol 44 mg/dl (40-60); Potassium 4.1 mmoL/L (3.5-5.1); Sodium 141 mmol/L (136-145); Total Protein,Serum 6.5 g/dl (6.3-8.2); Triglycerides 157 mg/dl (30-150); VLDL Cholesterol 31 mg/dL (0-40)
[2024-11-04 19:28] LABS: Eosinophils % 3 % (0-3); Lymphocytes % 24 % (10-50); Monocytes % 9 % (2-9); Neutrophils % 62 % (42-76); Platelet Estimate Normal; RBC Morphology Normal; Total Cells Counted 100
[2024-11-04 20:12] LABS: HIV (1&2) Antibody Rapid NONREACTIVE (NONREACTIVE)
[2024-11-04 22:51] LABS: Hemoglobin A1C 5.4 % (4.0-6.0)
[2024-11-06 08:42] LABS: HCV Ab Non Reactive (Non Reactive)
== END 2024-11-04 23:59 | disposition home or self-care (01) ==
LOC: LAB.DROPOF 11-05 14:48
PROVIDERS: PCP Student in an Organized Health Care Education/Training Program; Visit Provider Student in an Organized Health Care Education/Training Program
DX: E55.9 Vitamin D deficiency, unspecified (principal); Z68.41 Body mass index [BMI] 40.0-44.9, adult; Z11.59 Encounter for screening for other viral diseases; E66.01 Morbid (severe) obesity due to excess calories; Z11.4 Encounter for screening for human immunodeficiency virus [HIV]; E11.9 Type 2 diabetes mellitus without complications; Z79.85 Long-term (current) use of injectable non-insulin antidiabetic drugs
CPT/HCPCS: 80053; 80061; 82306; 83036; 84443; 85007; 85014; 85018; 85048; 85049; 86803; 87389

== ENCOUNTER 2025-03-28 08:00 | Outpatient (CLI) | payer MEDICAID, SELFPAY ==
[2025-03-28 19:08] LABS: Creatinine,Urine Random 133 mg/dL (Not Estab.)
[2025-03-28 19:09] LABS: Microalbumin/Creatinine Ratio 7.4
[2025-03-28 19:20] LABS: Albumin Level 4.3 g/dl (3.5-5.0); Chloride 105 mmol/L (98-107); Potassium 4.5 mmoL/L (3.5-5.1); Sodium 139 mmol/L (136-145)
[2025-03-28 19:23] LABS: Alanine Aminotransferase 21 U/L (12-78); Albumin/Globulin Ratio 1.8 (1.1-1.8); Alkaline Phosphatase 43 U/L (38-126); Anion Gap 10.5 mEq/L (5-15); Aspartate Amino Transferase 24 U/L (14-36); Bilirubin,Total 0.6 mg/dl (0.2-1.3); Blood Urea Nitrogen 17 mg/dl (7-17); Calcium 9.2 mg/dl (8.4-10.2); Carbon Dioxide 28 mmol/L (22.0-30.0); Cholesterol 187 mg/dl (140-200); Estimated Glomerular Filt Rate 71 ml/min (>60); GFR (African American) 86 ML/MIN (>60); Globulin 2.4 g/dL (1.3-3.2); Glucose 78 mg/dl (74-100); HDL Cholesterol 47 mg/dl (40-60); Total Protein,Serum 6.7 g/dl (6.3-8.2); Triglycerides 210 mg/dl (30-150); VLDL Cholesterol 42 mg/dL (0-40)
[2025-03-28 19:34] LABS: Direct LDL Cholesterol 91.97 mg/dL (100-129)
== END 2025-03-28 23:59 | disposition home or self-care (01) ==
LOC: LAB.DROPOF 03-31 11:10
PROVIDERS: PCP Family Medicine; Visit Provider Family Medicine
DX: Z00.00 Encounter for general adult medical examination without abnormal findings (principal); E11.9 Type 2 diabetes mellitus without complications; Z79.85 Long-term (current) use of injectable non-insulin antidiabetic drugs
CPT/HCPCS: 80053; 80061; 82043; 82570

== ENCOUNTER 2025-06-04 08:11 | Outpatient (CLI) | payer MEDICAID, SELFPAY | END 2025-06-04 23:59 | disposition home or self-care (01) | LOC: LAB.DROPOF 14:16 | PROVIDERS: PCP Nurse Practitioner; Visit Provider Nurse Practitioner | DX: R30.0 Dysuria (principal) | CPT/HCPCS: 87086; 87088; 87186; 87491; 87591; 87661 ==

== ENCOUNTER 2025-10-17 12:57 | Outpatient (CLI) | payer MEDICAID, SELFPAY ==
--- NOTE | 2025-10-17 13:00 | MM_ITS ---
PROCEDURE INFORMATION: Exam: MG Bilateral Screening 3D Mammography Exam date and time: 10/17/2025 1:05 PM Age: 35 years old Clinical indication: Screening. Her maternal aunt, paternal aunt, maternal grandmother and paternal grandmother had breast cancer. TECHNIQUE: Imaging protocol: Bilateral Screening tomosynthesis and 2D mammography including computer-aided detection (CAD) when performed. COMPARISON: No relevant prior studies available. FINDINGS: MAMMOGRAPHY: Breast composition: There are scattered areas of fibroglandular density. Mass: None. Architectural distortion: None. Calcifications: No suspicious calcifications. Asymmetric density: None. Skin thickening: None. Axillary adenopathy: None. IMPRESSION: No mammographic evidence of malignancy. Annual screening is recommended unless otherwise clinically indicated. ASSESSMENT: BI-RADS Category 1: Negative.
== END 2025-10-17 23:59 | disposition home or self-care (01) ==
LOC: RAD 12:58
PROVIDERS: PCP Student in an Organized Health Care Education/Training Program; Visit Provider Family Medicine
DX: Z12.31 Encounter for screening mammogram for malignant neoplasm of breast (principal); R92.323 Mammographic fibroglandular density, bilateral breasts; Z80.3 Family history of malignant neoplasm of breast
CPT/HCPCS: 77063; 77067